=== PATIENT | female | born 1980 | race Caucasian/White ===

== ENCOUNTER 2016-11-10 05:29 | Day surgery (SDC) | payer OTHER ==
[2016-11-09 15:11] VITALS: BMI 33.1
[2016-11-10] VITALS (17 sets, daily range): BP systolic 112–143; BP diastolic 58–82; PULSE 54–84; RESP 13–26; Ht 162.6 cm; Wt 87.5 kg
[~2016-11-10] VITALS: Ht 162.6 cm; Wt 87.5 kg
[~2016-11-10 05:29] MED LIST: BACTDS PO; BUPIVACAINE 0.5% (SDV) 30 ML INJ INJ ONE; CEPH-443 PO; FAMO-18 PO; IBUP-1542 PO; ONDA4TAB8 PO; POLYMYXIN/BACITRACIN 1L IRRIG IRR ONE
[2016-11-10] MEDS ORDERED: CEFAZOLIN 2 GM/50 ML (PMX) 50 ML IVPB ONE (06:00)
[2016-11-10] MEDS ORDERED: BUPIVACAINE 0.5% (SDV) 30 ML INJ ONE (06:58)
[2016-11-10] MEDS ORDERED: CEFAZOLIN 1 GM INJ ONE (07:00)
--- NOTE | 2016-11-10 07:58 | HPN ---
Date/Time of Note Date/Time of Note DATE: 11/10/16 TIME: 07:57 Interval H&P Admission Note Pt. seen H&P reviewed: No system changes ROBERTH KING DPM Nov 10, 2016 07:58
[2016-11-10] MEDS ORDERED: MIDAZOLAM 1 MG/ML 2 ML INJ ONE (08:02)
[2016-11-10] MEDS ORDERED: ROPIVACAINE 0.5 % 30 ML VIAL ONE (08:06)
[2016-11-10] MEDS ORDERED: FENTAnyl 50 MCG/ML VIAL ONE (08:08)
[2016-11-10] MEDS ORDERED: GLYCOPYRROLATE 1 MG INJ ONE (08:37)
[2016-11-10] MEDS ORDERED: NEOSTIGMINE 3 MG/3 ML SYRINGE ONE (08:37)
[2016-11-10] MEDS ORDERED: LIDOCAINE 2% (SDV) 5 ML INJ ONE (08:37)
[2016-11-10] MEDS ORDERED: PROPOFOL 20 ML ONE ×2 (08:37→09:03)
[2016-11-10] MEDS ORDERED: ROCURONIUM 50 MG INJ ONE (08:37)
[2016-11-10] MEDS ORDERED: SUCCINYLCHOLINE CHLORIDE 100 MG/5 ML SYG IV ONE (08:37)
[2016-11-10] MEDS ORDERED: METOCLOPRAMIDE 10 MG INJ IV PRN (09:00)
[2016-11-10] MEDS ORDERED: DIPHENHYDRAMINE 50 MG INJ IV PRN (09:00)
[2016-11-10] MEDS ORDERED: HYDROmorphONE (0.2 MG/ML) 10ML SYG IV PRN ×2 (09:00)
[2016-11-10] MEDS ORDERED: FENTAnyl 50 MCG/ML VIAL IV PRN ×2 (09:00)
[2016-11-10] MEDS ORDERED: MIDAZOLAM 1 MG/ML 2 ML INJ IV PRN (09:00)
[2016-11-10] MEDS ORDERED: ONDANSETRON 4 MG INJ IV PRN (09:00)
[2016-11-10] MEDS ORDERED: MEPERIDINE 25 MG INJ IV PRN (09:00)
[2016-11-10] MEDS ORDERED: ONDANSETRON 4 MG INJ ONE (09:29)
[2016-11-10] MEDS: HYDROmorphONE (0.2 MG/ML) 10ML SYG IV PRN ×5 (09:41→10:39)
[2016-11-10] MEDS ORDERED: HYDROCODONE/APAP (5/325) TAB PO ONE (11:30)
--- NOTE | 2016-11-10 13:48 | RADRPT ---
PROCEDURE: XR Right Foot. CLINICAL INDICATION: Right foot pain. TECHNIQUE: Three views. Frontal, lateral, and oblique. COMPARISON: None. FINDINGS: There has been recent surgery with gas in the soft tissues of the first toe. There has been osteoto my of the first metatarsal distally with a single cannulated screw at this site. There are pins in the fourth and fifth toes. There is no acute fracture or dislocation. The soft tissues are otherwise normal. The articular surfaces are otherwise intact. There is no lytic or blastic lesion. IMPRESSION: 1. Satisfactory postoperative appearance of the right foot. RPTAT: QQ .Jonathan Hernandez MD, MD Date Time Electronically viewed and signed by .Jonathan Hernandez MD, MD on 11/10/2016 13:48 .R/
[2016-11-11] MEDS ORDERED: ONDA4TAB14 PO (17:15)
[2016-11-11] MEDS ORDERED: HYDR2TAB15 PO (17:15)
== END 2016-11-10 13:05 | disposition home or self-care (01) ==
LOC: SDS 05:29
PROVIDERS: ATTEND Podiatrist Foot & Ankle Surgery
DX: M21.611 Bunion of right foot (principal); M20.41 Other hammer toe(s) (acquired), right foot
CPT/HCPCS: 28285; 28298; 73630; 88304; 88311; C1713; J0330; J0690; J1170; J1200; J2175; J2250; J2405; J2710; J2795; J3010; Z7512; Z7610

== ENCOUNTER 2016-11-11 16:13 | Emergency (ER) | payer OTHER ==
[~2016-11-11] VITALS: Wt 86.0 kg
[~2016-11-11 16:13] MED LIST changes: -BUPIVACAINE 0.5% (SDV) 30 ML INJ INJ ONE; -POLYMYXIN/BACITRACIN 1L IRRIG IRR ONE
[2016-11-11] MEDS ORDERED: KETOROLAC 30 MG INJ IM STA (17:12)
[2016-11-11] MEDS ORDERED: ONDANSETRON (ODT) 4 MG TAB ODT STA (17:12)
[2016-11-11] MEDS ORDERED: ONDA4TAB14 PO (17:15)
[2016-11-11] MEDS ORDERED: HYDR2TAB15 PO (17:15)
--- NOTE | 2016-11-11 18:57 | ERD ---
ER Documentation Chief Complaint Date/Time DATE: 11/11/16 TIME: 18:55 Chief Complaint POST OP PAIN FROM PROCEDURE DONE TO R FOOT YESTERDAY HPI Patient is a 36-year-old female with no medical problems who presents with right fifth toe pain after surgery. The patient had a bunion and hammertoe surgery done yesterday by Dr. Gilbert from podiatry. She was given Falls but was having nausea and vomiting and therefore could not keep it down was having pain. Her last dose of Falls was at 11 AM. She was also having neck stiffness. She has no fevers. ROS All systems reviewed and are negative except as per history of present illness. Medications Home Meds Active Scripts Ondansetron (Ondansetron Odt) 4 Mg Tab.rapdis, 4 MG PO Q6H Y for NAUSEA AND/OR VOMITING, #30 TAB Prov:LU AZEVEDO MD 11/11/16 Hydromorphone Hcl* (Dilaudid*) 2 Mg Tablet, 2 MG PO Q6H Y for PAIN, #12 TAB Prov:LU AZEVEDO MD 11/11/16 Sulfamethoxazole-Trimethoprim* (Bactrim* DS) 800-160 Mg Tab, 1 TAB PO BID for 5 Days, TAB Prov:SAAD RIVERA CHIEF SOLUTION ARCHITECT 06/25/16 Cephalexin* (Keflex*) 500 Mg Capsule, 500 MG PO QID for 5 Days, CAP Prov:SAAD RIVERA NP 06/25/16 Ibuprofen* (Motrin*) 600 Mg Tab, 600 MG PO Q6H Y for PAIN AND OR ELEVATED TEMP, #30 TAB Prov:SAAD RIVERA NP 06/25/16 Ondansetron Hcl* (Zofran*) 4 Mg Tablet, 4 MG PO Q6H for NAUSEA AND/OR VOMITING, #30 TAB Prov:MANAGUELOD,ISAIAH P CHIEF SOLUTION ARCHITECT 06/19/16 Famotidine* (Pepcid*) 20 Mg Tablet, 20 MG PO BID for 10 Days, #20 TAB Prov:MANAGUELOD,ISAIAH P CHIEF SOLUTION ARCHITECT 06/19/16 Allergies Allergies: Coded Allergies: iodine (Unverified Allergy, Unknown, 06/19/16) latex (Verified Allergy, Unknown, 06/10/16) povidone-iodine (Unverified Allergy, Unknown, 06/10/16) soap (Unverified Allergy, Unknown, 06/10/16) Uncoded Allergies: SHELLFISH (Allergy, Unknown, 02/19/16) PMhx/Soc History of Surgery: Yes (left foot surgery, gall stone, ) Anesthesia Reaction: Yes (N/V) Hx Neurological Disorder: No Hx Respiratory Disorders: No Hx Cardiac Disorders: No Hx Psychiatric Problems: No Hx Miscellaneous Medical Probl: No Hx Alcohol Use: No Hx Substance Use: No Hx Tobacco Use: No FmHx Family History: No diabetes Physical Exam Vitals Vital Signs Date Time Temp Pulse Resp B/P Pulse Ox O2 Delivery O2 Flow Rate FiO2 11/11/16 16:16 98.3 71 18 120/78 99 Physical Exam Const: Mild distress secondary to pain Head: Atraumatic Eyes: Normal Conjunctiva ENT: Normal External Ears, Nose and Mouth. Neck: Full range of motion..~ No meningismus. Resp: Clear to auscultation bilaterally Cardio: Regular rate and rhythm, no murmurs Abd: Soft, non tender, non distended. Normal bowel sounds Skin: Recent surgery to the right fifth foot Back: No midline or flank tenderness Ext: No cyanosis, or edema Neur: Awake and alert Psych: Normal Mood and Affect Results 24 hrs Current Medications Medications (Trade) Dose Ordered Sig/Morales Route PRN Reason Start Time Stop Time Status Last Admin Dose Admin Ketorolac Tromethamine (Toradol) 30 mg ONCE STAT IM 11/11/16 17:12 11/11/16 17:13 DC 11/11/16 17:27 Ondansetron HCl (Zofran Odt) 4 mg ONCE STAT ODT 11/11/16 17:12 11/11/16 17:13 DC 11/11/16 17:27 Procedures/MDM Patient is a 36-year-old female presents with postoperative pain. I believe the patient will benefit from having a shot of Toradol in the emergency department. I believe changing her from Falls to Dilaudid pills would be appropriate as well. I will also give her a prescription for Zofran for the nausea and vomiting which is likely caused by the opioids. The patient will need to follow-up with Dr. Gilbert for any further pain medicines. She can return for any worsening symptoms. I see no signs of infection at this time. I believe outpatient management is appropriate. Departure Diagnosis: Primary Impression: Postoperative pain of extremity Condition: Fair Patient Instructions: Post Op Wound Check, Pain Referrals: ROBERTH GILBERT DPM Additional Instructions: SPECIALIST: YOU HAVE A MEDICAL CONDITION WHICH REQUIRES YOU TO SEE A SPECIALIST WITHIN THE NEXT 1-2 DAYS. PLEASE FOLLOW UP WITH YOUR PRIMARY PHYSICIAN FOR REFFERAL.IF YOU DO NOT HAVE A PRIMARY CARE PHYSICIAN AND/OR YOU CAN NOT AFFORD TO SEE A PHYSICIAN THE FOLLOWING RESOURCES HAVE BEEN SUPPLIED TO YOU. IT IS YOUR RESPONSIBILITY TO BE SEEN BY THE SPECIALIST LU AZEVEDO MD Nov 11, 2016 18:57
[2016-11-11 19:04] VITALS: BP 127/76; PULSE 61; RESP 20
== END 2016-11-11 19:00 | disposition home or self-care (01) ==
LOC: FTE 16:13
DX: G89.18 Other acute postprocedural pain (principal); M79.674 Pain in right toe(s); R11.2 Nausea with vomiting, unspecified
CPT/HCPCS: 96372; J1885; Z7502; Z7610

== ENCOUNTER 2016-12-22 05:15 | Emergency (ER) | payer OTHER ==
[~2016-12-22] VITALS: Ht 162.6 cm; Wt 90.5 kg
[~2016-12-22 05:15] MED LIST changes: +HYDR2TAB15 PO; +ONDA4TAB14 PO
[2016-12-22 05:18] VITALS: Ht 162.6 cm; Wt 90.5 kg
[2016-12-22] MEDS ORDERED: ONDANSETRON (ODT) 4 MG TAB ODT STA (06:23)
[2016-12-22] MEDS ORDERED: morphine 10 MG INJ IM ONE (06:30)
[2016-12-22] MEDS ORDERED: ONDANSETRON 4 MG INJ IM STA (07:52)
[2016-12-22] MEDS ORDERED: AMOXICILLIN/CLAV 875 MG TAB PO ONE (10:30)
[2016-12-22] MEDS ORDERED: KETOROLAC 60 MG INJ IM STA (10:31)
--- NOTE | 2016-12-22 10:46 | RADRPT ---
PROCEDURE: CT Cervical Spine without contrast. CLINICAL INDICATION: Left neck and face pain. TECHNIQUE: Helical axial sections were obtained through the soft tissues of the neck without intra venous contrast enhancement. Sagittal and coronal reformatted images were accomplished using the da ta from the axial images. Total exam DLP is 255.99 mGy-cm. CTDIvol is 8.62 mGy. One or more of th e following dose reduction techniques were used: Automated exposure control, adjustment of the mA an d/or kV according to patient size, use of iterative reconstruction technique. COMPARISON: No prior studies are available for comparison. FINDINGS: The osseous structures are unremarkable with no fracture or malalignment. The disk height is normal . Benign-appearing bilateral cervical lymph nodes are visualized. There is no mass or fluid collection. The airway is intact. The prevertebral soft tissues are normal. IMPRESSION: 1. Unremarkable CT scan of the soft tissues of the neck. RPTAT: QQ .Jonathan Hernandez MD, MD Date Time Electronically viewed and signed by .Jonathan Hernandez MD, on 12/22/2016 10:45 .R/
[2016-12-22] MEDS ORDERED: AMOX1TAB10 PO (11:40)
[2016-12-22] MEDS ORDERED: HYDR-906 PO (11:41)
[2016-12-22] MEDS ORDERED: NAPR-260 PO (11:41)
--- NOTE | 2016-12-22 11:43 | ERD ---
ER Documentation Chief Complaint Date/Time DATE: 12/22/16 TIME: 11:43 Chief Complaint left ear pain HPI This 36-year-old female presents to the emergency with left ear pain that is also traveling down the side of her face and the top portion of her neck on that side. The pain began yesterday and the patient had nausea that began today. She had an episode of vomiting as well. States that 2 weeks ago she had a dental abscess drained. Currently she has no dental pain or symptoms inside of her mouth. She denies fever and chills. ROS All systems reviewed and are negative except as per history of present illness. Medications Home Meds Active Scripts Ondansetron (Zofran Odt) 4 Mg Tab.rapdis, 4 MG PO Q6, #14 Prov:ASYA DOYLE DO 12/22/16 Naproxen* (Naprosyn*) 500 Mg Tablet, 500 MG PO BID Y for PAIN AND/OR INFLAMMATION, #30 TAB Prov:ASYA DOYEL DO 12/22/16 Hydrocodone/Acetaminophen ([place] 5-325 Tablet) 1 Each Tablet, 1 EACH PO Q6, #10 TAB Prov:ASYA DOYLE DO 12/22/16 Amoxicillin/Potassium Clav (Amox-Clav 875-125 mg Tablet) 875-125 mg Tab, 1 TAB PO BID, #18 TAB Prov:ASYA DOYLE DO 12/22/16 Ondansetron (Ondansetron Odt) 4 Mg Tab.rapdis, 4 MG PO Q6H Y for NAUSEA AND/OR VOMITING, #30 TAB Prov:LU AZEVEDO MD 11/11/16 Hydromorphone Hcl* (Dilaudid*) 2 Mg Tablet, 2 MG PO Q6H Y for PAIN, #12 TAB Prov:LU AZEVEDO MD 11/11/16 Sulfamethoxazole-Trimethoprim* (Bactrim* DS) 800-160 Mg Tab, 1 TAB PO BID for 5 Days, TAB Prov:SAAD RIVERA NP 06/25/16 Cephalexin* (Keflex*) 500 Mg Capsule, 500 MG PO QID for 5 Days, CAP Prov:SAAD RIVERA NP 06/25/16 Ibuprofen* (Motrin*) 600 Mg Tab, 600 MG PO Q6H Y for PAIN AND OR ELEVATED TEMP, #30 TAB Prov:SAAD RIVERA WALL STEAMER 06/25/16 Ondansetron Hcl* (Zofran*) 4 Mg Tablet, 4 MG PO Q6H for NAUSEA AND/OR VOMITING, #30 TAB Prov:MANAGUELOD,ISAIAH P WALL STEAMER 06/19/16 Famotidine* (Pepcid*) 20 Mg Tablet, 20 MG PO BID for 10 Days, #20 TAB Prov:MANAGUELOD,ISAIAH P WALL STEAMER 06/19/16 Allergies Allergies: Coded Allergies: iodine (Unverified Allergy, Unknown, 06/19/16) latex (Verified Allergy, Unknown, 06/10/16) povidone-iodine (Unverified Allergy, Unknown, 06/10/16) soap (Unverified Allergy, Unknown, 06/10/16) Uncoded Allergies: SHELLFISH (Allergy, Unknown, 02/19/16) PMhx/Soc Medical and Surgical Hx: pt denies Medical Hx History of Surgery: Yes (left foot surgery, gall stone, ) Anesthesia Reaction: Yes (N/V) Hx Neurological Disorder: No Hx Respiratory Disorders: No Hx Cardiac Disorders: No Hx Psychiatric Problems: No Hx Miscellaneous Medical Probl: No Hx Alcohol Use: No Hx Substance Use: No Hx Tobacco Use: No Smoking Status: Never smoker Physical Exam Vitals Vital Signs Date Time Temp Pulse Resp B/P Pulse Ox O2 Delivery O2 Flow Rate FiO2 12/22/16 05:18 98.7 78 20 132/85 98 Physical Exam Const: [] No acute distress Eyes: Normal Conjunctiva ENT: Normal External Ears, Nose and Mouth. Right tympanic murmur within normal limits, left tympanic membrane with erythema along upper margin of tympanic membrane with some dullness. Neck: Full range of motion..~ No meningismus. No adenopathy Resp: Clear to auscultation bilaterally Cardio: Regular rate and rhythm, no murmurs Neur: Awake and alert and oriented 3, normal gait, cranial nerves II through XII intact, no cerebellar deficits no focal deficits Results 24 hrs Current Medications Medications (Trade) Dose Ordered Sig/Morales Route PRN Reason Start Time Stop Time Status Last Admin Dose Admin Morphine Sulfate (morphine) 4 mg ONCE ONCE IM 12/22/16 06:30 12/22/16 06:31 DC 12/22/16 06:32 Ondansetron HCl (Zofran Odt) 4 mg ONCE STAT ODT 12/22/16 06:23 12/22/16 06:24 DC 12/22/16 06:32 Ondansetron HCl (Zofran Inj) 4 mg ONCE STAT IM 12/22/16 07:52 12/22/16 07:53 DC 12/22/16 08:03 Amoxicillin/ Clavulanate Potassium (Augmentin) 875 mg ONCE ONCE PO 12/22/16 10:30 12/22/16 10:31 DC 12/22/16 10:39 Ketorolac Tromethamine (Toradol) 60 mg ONCE STAT IM 12/22/16 10:31 12/22/16 10:32 DC 12/22/16 10:39 Procedures/MDM Left-sided ear and facial pain with mild otitis media 2 weeks after dental abscess drainage. Thought was for possible abscess or increasing infection. CT soft tissue neck was negative for any inflammation or fluid collection in the face neck or area around the ear. Also no mastoiditis. Patient's vital signs were completely stable. She did have nausea she came in. She was given Zofran both IM and ODT and given a morphine shot 4 mg. This took away her pain completely. Because of prolonged time getting the CT read patient's pain returned somewhat and she was given Toradol IM injection which took away the pain completely. Going to discharge her with Augmentin for the potential of infection and her eustachian tube as well as her ear causing her pain and nausea. Also given instructions to call her doctor today to get a referral for an ENT doctor. Return precautions to the ER also given. CT soft tissue neck interpretation: Normal soft tissue neck, no fluid collection , no inflammation of normal spaces. Departure Diagnosis: Primary Impression: Left otitis media Additional Impressions: Vomiting Facial pain Condition: Stable Patient Instructions: Otitis Media, Abx Tx (Adult) Additional Instructions: Call your primary care doctor TOMORROW for an appointment during the next 1-2 days. Obtain a referral for an ENT DOCTOR. See the doctor sooner or return here if your condition worsens before your appointment time. ASYA DOYLE DO December 22, 2016 11:43
[2016-12-22] MEDS ORDERED: ONDA4TAB11 PO (12:09)
[2016-12-22] MEDS ORDERED: CYAN50TA PO (20:13)
== END 2016-12-22 12:13 | disposition home or self-care (01) ==
LOC: FTE 05:15
DX: H66.92 Otitis media, unspecified, left ear (principal); R11.10 Vomiting, unspecified; R51 Headache; Z91.040 Latex allergy status
CPT/HCPCS: 70490; 96372; J1885; J2270; J2405; Z7502; Z7610

== ENCOUNTER 2016-12-22 13:31 | Inpatient (IN) | payer OTHER ==
[~2016-12-22] VITALS: Ht 162.6 cm; Wt 89.5 kg
[~2016-12-22 13:31] MED LIST changes: +AMOX1TAB10 PO; +HYDR-906 PO; +NAPR-260 PO; +ONDA4TAB11 PO
[2016-12-22] MEDS ORDERED: morphine 4 MG/ML VIAL IV STA (14:51)
[2016-12-22] MEDS ORDERED: ONDANSETRON 4 MG INJ IV STA (14:51)
[2016-12-22 15:24] LABS: ADD UMIC YES; URINE BILIRUBIN (Dip) 2+ (NEGATIVE); URINE BLOOD (Dip) NEGATIVE (NEGATIVE); URINE COLOR AMBER (YELLOW); URINE GLUCOSE (Dip) NEGATIVE (NEGATIVE); URINE KETONES (Dip) TRACE (NEGATIVE); URINE LEUKOCYTE ESTERASE (Dip) NEGATIVE (NEGATIVE); URINE NITRITE (Dip) POSITIVE (NEGATIVE); URINE TOTAL PROTEIN (Dip) 2+ (NEGATIVE); URINE UROBILINOGEN (Dip) 1.0 E.U./dL (0.1-1.0)
--- NOTE | 2016-12-22 15:35 | RADRPT ---
PROCEDURE: US Abdomen (right upper quadrant). CLINICAL INDICATION: Right upper quadrant abdomen pain. History of cholecystectomy. TECHNIQUE: Multiple real-time longitudinal and transverse images of the right upper quadrant of th e abdomen were acquired utilizing a curved array transducer. Images were reviewed on a high-resoluti on PACS workstation. COMPARISON: CT scan of the abdomen and pelvis dated 10/28/2014. FINDINGS: The liver is normal in size and diffusely increased in echogenicity. There is no focal hepatic lesion. The gallbladder is surgically absent. The bile ducts are normal with the common bile duct measuring 4.4 mm in diameter. The visualized portions of the pancreas are unremarkable with obscuration of the tail of the pancrea s. No free fluid is present. The right kidney measures 11.4 cm. There is normal echogenicity of the right kidney. There is no perinephric fluid collection. No hydronephrosis, mass, or calculus is seen. IMPRESSION: 1. Fatty metamorphosis of the liver. 2. Status post cholecystectomy. 3. Otherwise normal right upper quadrant abdomen ultrasound. RPTAT: QQ .Jonathan Hernandez MD, MD Date Time Electronically viewed and signed by .Jonathan Hernandez MD, on 12/22/2016 15:35 .R/
[2016-12-22 16:00] LABS: ADD SCAN DIFF NO
[2016-12-22 16:01] LABS: BASOPHILS % 0.1 % (0.0-2.0); EOSINOPHILS # 0.1 10^3/ul (0.0-0.5); EOSINOPHILS % 0.5 % (0.0-7.0); HEMATOCRIT 38.3 % (37.0-47.0); HEMOGLOBIN 12.4 g/dl (12.0-16.0); LYMPHOCYTES # 1.5 10^3/ul (0.8-2.9); LYMPHOCYTES % 13.9 % (15.0-51.0); MEAN CORPUSCULAR HEMOGLOBIN 26.2 pg (29.0-33.0); MEAN CORPUSCULAR HGB CONC 32.4 g/dl (32.0-37.0); MEAN PLATELET VOLUME 10.2 fl (7.4-10.4); MONOCYTE # 0.3 10^3/ul (0.3-0.9); MONOCYTES % 3.1 % (0.0-11.0); NEUTROPHIL # 8.9 10^3/ul (1.6-7.5); NEUTROPHILS % 81.9 % (39.0-77.0); PLATELET COUNT 254 10^3/UL (140-415); RED BLOOD COUNT 4.73 10^6/ul (4.20-5.40); RED CELL DISTRIBUTION WIDTH 13.4 % (11.5-14.5); WHITE BLOOD COUNT 10.8 10^3/ul (4.8-10.8)
[2016-12-22 16:18] LABS: ALBUMIN 4.4 g/dl (3.3-4.9)
[2016-12-22 16:19] LABS: POTASSIUM 3.5 mmol/L (3.5-5.1)
[2016-12-22 16:21] LABS: BILIRUBIN,INDIRECT 0.6 mg/dl (0-1.1); BILIRUBIN,TOTAL 0.6 mg/dl (0.2-1.3); CREATININE 0.66 mg/dl (0.44-1.00)
[2016-12-22 16:22] LABS: ALBUMIN/GLOBULIN RATIO 1.25; CALCIUM 9.4 mg/dl (8.4-10.2); TOTAL PROTEIN 7.9 g/dl (6.1-8.1)
[2016-12-22] MEDS ORDERED: METOCLOPRAMIDE 10 MG INJ IV STA (16:24)
[2016-12-22 16:28] LABS: ICTOTEST NEGATIVE (NEGATIVE)
[2016-12-22 16:29] LABS: SQUAMOUS EPITHELIAL CELL,UR FEW; URINE RBCS NONE SEEN /HPF (0)
[2016-12-22 16:30] LABS: BACTERIA,URINE MODERATE; MUCUS,URINE MODERATE
[2016-12-22] MEDS ORDERED: SOD CHLORIDE 0.9% 1,000 ML IV STA (16:31)
--- NOTE | 2016-12-22 16:57 | ERA ---
ER Documentation Chief Complaint Date/Time DATE: 12/22/16 TIME: 16:57 Chief Complaint ABDOMINAL PAIN WITH N/V AFTER BEING DISCHARGED 20MIN AGO HPI This is a 36-year-old female with history of cholecystectomy presenting to the emergency department complaining of right upper and lower quadrant abdominal pain, nausea, vomiting since she has been discharged from this hospital 20 minutes prior to being seen. Patient initially was complaining of left ear pain that started yesterday with nausea and one episode of vomiting, patient received morphine, Zofran, Augmentin. Patient states that she was fine until she went to the restroom and try to have a bowel movement and she had this severe 7 out of 10 right and left lower quadrant pain that radiates to her back associated with nausea and vomiting. Patient denies any fevers or diarrhea. Patient denies any alcohol use or drug use. ROS All systems reviewed and are negative except as per history of present illness. Medications Home Meds Active Scripts Ondansetron (Zofran Odt) 4 Mg Tab.rapdis, 4 MG PO Q6, #14 Prov:ASYA DOYLE DO 12/22/16 Naproxen* (Naprosyn*) 500 Mg Tablet, 500 MG PO BID Y for PAIN AND/OR INFLAMMATION, #30 TAB Prov:ASYA DOYLE DO 12/22/16 Hydrocodone/Acetaminophen ([place] 5-325 Tablet) 1 Each Tablet, 1 EACH PO Q6, #10 TAB Prov:ASYA DOYLE DO 12/22/16 Amoxicillin/Potassium Clav (Amox-Clav 875-125 mg Tablet) 875-125 mg Tab, 1 TAB PO BID, #18 TAB Prov:ASYA DOYLE DO 12/22/16 Ondansetron (Ondansetron Odt) 4 Mg Tab.rapdis, 4 MG PO Q6H Y for NAUSEA AND/OR VOMITING, #30 TAB Prov:LU AZEVEDO MD 11/11/16 Hydromorphone Hcl* (Dilaudid*) 2 Mg Tablet, 2 MG PO Q6H Y for PAIN, #12 TAB Prov:LU AZEVEDO MD 11/11/16 Sulfamethoxazole-Trimethoprim* (Bactrim* DS) 800-160 Mg Tab, 1 TAB PO BID for 5 Days, TAB Prov:SAAD RIVERA NP 06/25/16 Cephalexin* (Keflex*) 500 Mg Capsule, 500 MG PO QID for 5 Days, CAP Prov:SAAD RIVERA X. PURCHASING MANAGER/SALES 06/25/16 Ibuprofen* (Motrin*) 600 Mg Tab, 600 MG PO Q6H Y for PAIN AND OR ELEVATED TEMP, #30 TAB Prov:SAAD RIVERA X. PURCHASING MANAGER/SALES 06/25/16 Ondansetron Hcl* (Zofran*) 4 Mg Tablet, 4 MG PO Q6H for NAUSEA AND/OR VOMITING, #30 TAB Prov:MANAGUELOD,ISAIAH P PURCHASING MANAGER/SALES 06/19/16 Famotidine* (Pepcid*) 20 Mg Tablet, 20 MG PO BID for 10 Days, #20 TAB Prov:MANAGUELOD,ISAIAH P PURCHASING MANAGER/SALES 06/19/16 Allergies Allergies: Coded Allergies: iodine (Unverified Allergy, Unknown, 12/22/16) latex (Verified Allergy, Unknown, 12/22/16) povidone-iodine (Unverified Allergy, Unknown, 12/22/16) soap (Unverified Allergy, Unknown, 12/22/16) Uncoded Allergies: SHELLFISH (Allergy, Unknown, 02/19/16) PMhx/Soc History of Surgery: Yes (left foot surgery, gall stone, ) Anesthesia Reaction: Yes (N/V) Hx Neurological Disorder: No Hx Respiratory Disorders: No Hx Cardiac Disorders: No Hx Psychiatric Problems: No Hx Miscellaneous Medical Probl: No Hx Alcohol Use: No Hx Substance Use: No Hx Tobacco Use: No Smoking Status: Never smoker Physical Exam Vitals Vital Signs Date Time Temp Pulse Resp B/P Pulse Ox O2 Delivery O2 Flow Rate FiO2 12/22/16 13:40 97.6 88 18 113/63 98 Physical Exam GENERAL: well-developed/well-nourished, in no apparent distress, non-toxic appearing HENT: NC/AT, moist mucous membranes EYES: Conjunctiva normal NECK: Supple, no lymphadenopathy PULM: CTA bilaterally, no rales, rhonchi, or wheezing heard CV: Normal S1S2, RRR, good capillary refill GI: Soft, non-distended, tender to palpation right upper quadrant epigastric pain Normal bowel sounds, no masses or organomegaly felt on exam No gross peritonitis, no bruits Negative Rovsing, negative Mcgee, negative McBurney's point, Negative CVAT BACK: No masses EXT: No clubbing, cyanosis, or edema NEURO: Alert and Orientated SKIN: Intact, normal turgor PSYCH: Normal mood and mentation Result Diagram: 12/22/16 1535 12/22/16 1535 Results 24 hrs Laboratory Tests Test 12/22/16 15:00 12/22/16 15:35 Urine Color BRANT Urine Clarity SLIGHTLY CLOUDY Urine pH 5.0 Urine Specific [place] >=1.030 Urine Ketones TRACE Urine Nitrite POSITIVE Urine Bilirubin 2+ Urine Ictotest NEGATIVE Urine Urobilinogen 1.0 E.U./dL Urine Leukocyte Esterase NEGATIVE Urine Microscopic RBC NONE SEEN/HPF Urine Microscopic WBC NONE SEEN/HPF Urine Squamous Epithelial Cells FEW Urine Calcium Oxalate Crystals MODERATE Urine Bacteria MODERATE Urine Mucus MODERATE Urine Hemoglobin NEGATIVE Urine Glucose NEGATIVE% Urine Total Protein 2+ Urine Opiates Screen Pending Urine Barbiturates Pending Urine Amphetamines Screen Negative Urine Benzodiazepines Screen Pending Urine Cocaine Screen Pending Urine Cannabinoids Pending White Blood Count 10.810^3/ul Red Blood Count 4.7310^6/ul Hemoglobin 12.4g/dl Hematocrit 38.3% Mean Corpuscular Volume 81.0fl Mean Corpuscular Hemoglobin 26.2pg Mean Corpuscular Hemoglobin Concent 32.4g/dl Red Cell Distribution Width 13.4% Platelet Count 82205^3/UL Mean Platelet Volume 10.2fl Neutrophils % 81.9% Lymphocytes % 13.9% Monocytes % 3.1% Eosinophils % 0.5% Basophils % 0.1% Nucleated Red Blood Cells % 0.0/100WBC Neutrophils # 8.910^3/ul Lymphocytes # 1.510^3/ul Monocytes # 0.310^3/ul Eosinophils # 0.110^3/ul Basophils # 0.010^3/ul Nucleated Red Blood Cells # 0.010^3/ul Sodium Level 140mmol/L Potassium Level 3.5mmol/L Chloride Level 99mmol/L Carbon Dioxide Level 28mmol/L Anion Gap 17 Blood Urea Nitrogen 12mg/dl Creatinine 0.66mg/dl Glucose Level 104mg/dl Calcium Level 9.4mg/dl Total Bilirubin 0.6mg/dl Direct Bilirubin 0.00mg/dl Indirect Bilirubin 0.6mg/dl Aspartate Amino Transf (AST/SGOT) 279IU/L Alanine Aminotransferase (ALT/SGPT) 150IU/L Alkaline Phosphatase 103IU/L Total Protein 7.9g/dl Albumin 4.4g/dl Globulin 3.50g/dl Albumin/Globulin Ratio 1.25 Lipase 1240U/L Ethyl Alcohol Level < 10.0mg/dl Current Medications Medications (Trade) Dose Ordered Sig/Morales Route PRN Reason Start Time Stop Time Status Last Admin Dose Admin Morphine Sulfate (morphine) 4 mg ONCE STAT IV 12/22/16 14:51 12/22/16 14:53 DC 12/22/16 15:47 Ondansetron HCl (Zofran Inj) 4 mg ONCE STAT IV 12/22/16 14:51 12/22/16 14:53 DC 12/22/16 15:43 Metoclopramide HCl 10 mg 10 mg ONCE STAT IV 12/22/16 16:24 12/22/16 16:25 DC 12/22/16 16:33 Sodium Chloride 1,000 ml @ 2,000 mls/hr Q30M STAT IV 12/22/16 16:31 12/22/16 17:00 DC 12/22/16 16:35 Sodium Chloride (NS) 1,000 ml @ 80 mls/hr [id number] IV 12/22/16 17:57 12/23/16 06:26 Ondansetron HCl (Zofran Inj) 4 mg BRIDGE ORDER PRN IV NAUSEA AND/OR VOMITING 12/22/16 18:00 12/23/16 17:59 Acetaminophen (Tylenol Tab) 650 mg ER BRIDGE PRN PO MILD PAIN/FEVER 12/22/16 18:00 12/23/16 17:59 Procedures/MDM This is a 36-year-old female with history of cholecystectomy presenting to the emergency department complaining of right-sided abdominal pain that radiates to her back,nausea, vomiting since she has been discharged from this hospital 20 minutes prior to being seen. Patient was found to have acute pancreatitis, etiology unknown and will be admitted as an inpatient for further evaluation and management. Patient initially was complaining of left ear pain that started yesterday with nausea and one episode of vomiting, patient received morphine, Zofran, Augmentin. Patient states that she was fine until she went to the restroom and try to have a bowel movement and she had this severe 7 out of 10 right and left lower quadrant pain that radiates to her back associated with nausea and vomiting. Patient has stable vital signs, she is afebrile. IV access was established. Patient was given 2 L of fluids, Zofran, Morphine, Reglan and her symptoms have stabilized in the ED. Lab work was drawn, patient had no evidence of leukocytosis. CMP showed elevated transaminases, patient had an elevated lipase around 1200. Gallbladder ultrasound was done, radiologist stated: 1. Fatty metamorphosis of the liver. 2. Status post cholecystectomy. 3. Otherwise normal right upper quadrant abdomen ultrasound. CT abd and pelvis without contrast: 1. Small to moderate hiatal hernia. 2. 1.7 cm cyst in the left adnexa consistent with an ovarian cyst. 3. Small amount of free fluid in the cul-de-sac. No abdominal abscess or free air. 4. Unremarkable appendix. 5. Status post cholecystectomy without biliary ductal dilation. 6. No evidence of calcified urinary calculi or obstructive uropathy. I have consulted my supervising physician who consulted the hospitalist and accepted admission to med/surg. Patient is stable for transfer. Patient's care until admission will further be done by Departure Diagnosis: Primary Impression: Pancreatitis Condition: JANETTE Casillas PA-C December 22, 2016 16:57
--- NOTE | 2016-12-22 17:14 | RADRPT ---
PROCEDURE: CT Abdomen and pelvis without contrast. CLINICAL INDICATION: Epigastric pain TECHNIQUE: CT scan of the abdomen and pelvis with contrast was performed on a multidetector high-r esolution CT scan. . Coronal and sagittal reformatted images were obtained from the axial source i mages. Standard CT scan of the abdomen pelvis without contrast protocols were performed. The total exam CTDI equals 20.1 mGy and the total exam DLP equals 1162.06 mGy-cm. One or more of the following dose reduction techniques were used: - Automated exposure control. - Adjustment of the mA and/or kV according to patient size. Use of iterative reconstruction technique. COMPARISON: Abdominal ultrasound 12/22/2016 FINDINGS: Status post previous cholecystectomy without evidence of biliary ductal dilation. The appendix is unremarkable. The small bowel large bowel are unremarkable. There is a small to mo derate hiatal hernia. The stomach is otherwise unremarkable.. The kidneys are normal in size without evidence of calcified renal calculi, hydronephrosis or ventra l masses bilaterally. The urinary bladder is partially contracted but otherwise unremarkable. The uterus is retroverted but otherwise unremarkable. There is a 1.7 cm cystic mass in the left adn exa consistent with a left ovarian cyst. No other adnexal masses demonstrated. The small amount of fluid in the cul-de-sac. No other abdominal free fluid. Negative for intra-abdominal abscess or fr ee air. The lung bases are unremarkable. There is minimal degenerative changes lower thoracic and lumbar sp ine. No acute osseous findings are osteoblastic/osteolytic lesions. The aorta is unremarkable. IMPRESSION: 1. Small to moderate hiatal hernia. 2. 1.7 cm cyst in the left adnexa consistent with an ovarian cyst. 3. Small amount of free fluid in the cul-de-sac. No abdominal abscess or free air. 4. Unremarkable appendix. 5. Status post cholecystectomy without biliary ductal dilation. 6. No evidence of calcified urinary calculi or obstructive uropathy. RPTAT:AAJJ Physician Charley Date Time Electronically viewed and signed by Physician Charley on 12/22/2016 17:14 BM/
[2016-12-22] MEDS ORDERED: SOD CHLORIDE 0.9% 1,000 ML IV SCH (17:57)
[2016-12-22] MEDS ORDERED: ACETAMINOPHEN 325 MG TAB PO PRN (18:00)
[2016-12-22] MEDS ORDERED: ONDANSETRON 4 MG INJ IV PRN (18:00)
[2016-12-22] MEDS: SOD CHLORIDE 0.9% 1,000 ML IV SCH (19:00)
[2016-12-22 19:21] LABS: BENZODIAZEPINES NEGATIVE (NEGATIVE); CANNABINOIDS NEGATIVE (NEGATIVE)
[2016-12-22 19:22] LABS: BARBITURATES NEGATIVE (NEGATIVE)
[2016-12-22 20:09] LABS: COCAINE POSITIVE (NEGATIVE); OPIATES POSITIVE (NEGATIVE)
[2016-12-22] MEDS ORDERED: CYAN50TA PO (20:13)
[2016-12-22] MEDS: morphine 2 MG INJ IV PRN (20:25)
[2016-12-22] MEDS ORDERED: LORAZEPAM 2 MG INJ IV ONE (21:30)
[2016-12-22 23:00] VITALS: BP 115/69; PULSE 86; RESP 20
--- NOTE | 2016-12-22 23:16 | RADRPT ---
PROCEDURE: MR Abdomen and MRCP. CLINICAL INDICATION: Status post cholecystectomy. Pain. TECHNIQUE: MRI abdomen with and without contrast and MRCP was performed on a high field scanner. 7.5 cc Gadavist intravenous contrast material was utilized.. 3-D coronal rotating MIP images of the biliary tree are available for review. COMPARISON: CT and ultrasound abdomen 12/22/2016 FINDINGS: MRCP: The gallbladder has been removed. There is no abnormal fluid collection in the gallbladder fossa. Cy stic duct is identified and is normal in appearance. The biliary tree is not dilated. No intrahepat ic nor extrahepatic biliary dilatation is present. Common bile duct is normal in size measuring up to 3.6 mm. There is no intraluminal calculus identified. The pancreatic duct is normal in caliber. . MRI Abdomen: The pancreas is normal in size and appearance. There is no focal pancreatic mass or peripancreatic fluid. The liver is normal in size with signal intensity compatible with fatty infiltration.. There is a 5 mm probable cyst in the right lobe liver. The spleen is normal in size and homogeneous in signal int ensity. The stomach is partially collapsed but grossly unremarkable. The adrenal glands are mariola l in appearance. Kidneys are unremarkable.. The aorta is of normal caliber. There is no retroperi toneal lymphadenopathy. The visualize bowel and mesentery are unremarkable. There is no free fluid. IMPRESSION: 1. Status post cholecystectomy. 2. No evidence for biliary obstruction. Normal caliber intrahepatic and extrahepatic biliary tree without evidence for choledocholithiasis. 3. Fatty liver. 4. Small cyst in the right lobe liver. RPTAT: HMVK .Ruben Jasso MD, Date Time Electronically viewed and signed by .Ruben Jasso MD, MD on 12/22/2016 23:16 .K/
[2016-12-22] MEDS: DOCUSATE SODIUM 100 MG CAP PO SCH (23:22)
[2016-12-22] MEDS: FAMOTIDINE 20 MG INJ IV SCH (23:22)
[2016-12-23 00:53] VITALS: Ht 162.6 cm; Wt 89.5 kg
[2016-12-23] MEDS: SOD CHLORIDE 0.9% 1,000 ML IV SCH ×4 (02:30→18:30)
--- NOTE | 2016-12-23 07:38 | HP ---
DATE OF ADMISSION: 12/22/2016 PRESENTING COMPLAINT: Abdominal pain. HISTORY OF PRESENTING COMPLAINT: Ms. Tejada is a 36-year-old female who was seen earlier in the day in our emergency room because of fullness in the left side of her ear and having ear discomfort and neck discomfort as well. At that time, she was evaluated in the ER and thought she might have s ome otitis media. She was medicated and the patient was sent home. On her way home, she developed excruciating mid epigastric abdominal pain that radiated to her back. She has never had similar melissa n before. She does have a history of gallstones and is status post cholecystectomy but she says thi s pain was different. She rated the pain as 10/10. It was associated with multiple episodes of vom iting. The patient had no fever. There was no blood in her vomit. She has had no diarrhea and she has not noted black stools. She had no chest pain, otherwise no shortness of breath. She does not have loss of appetite. REVIEW OF SYSTEMS: A 10-point review of system was done. Pertinent findings as listed in the HPI. PAST MEDICAL HISTORY: Essentially none. PAST SURGICAL HISTORY: Foot surgery, and cholecystectomy. She has had multiple bunion [place]un[place] rgeries on her foot. ALLERGIES: SHE IS ALLERGIC TO: 1. IODINE. 2. LATEX. 3. SHELLFISH. HOME MEDICATIONS: None. SOCIAL HISTORY: Denies tobacco, alcohol or illicit drug use. FAMILY HISTORY: Noncontributory. PHYSICAL EXAMINATION: VITAL SIGNS: Temperature 97.6, pulse 88, respirations 18, blood pressure 113/63, saturations 98% on room air. GENERAL: She is alert and oriented, obese female currently comfortable. HEENT: Head is normocephalic. Pupils are equal round and reactive. No jaundice. Mucous membranes are moist. Posterior pharynx clear of exudate. NECK: Supple. CHEST: Clear. CARDIOVASCULAR: S1, S2, no murmurs. ABDOMEN: Nontender, obese, soft with normoactive bowel sounds. EXTREMITIES: There is lower extremity edema. NEUROLOGIC: She has no focal deficits. SKIN: No jaundice or rash. PSYCHIATRIC: Calm, cooperative with exam, slightly anxious. LABORATORY VALUES: Her CBC was unremarkable but positive for a low MCV and MCH and a neutrophilia. On her chemistry, her AST and ALT were elevated with AST being almost double ALT at 279 and 150. H er lipase was quite elevated as well at 1240. The urine was nitrite positive with trace ketones, ba cteria and calcium oxalate crystals and urine tox screen was positive for opiates and cocaine. ASSESSMENT: 1. Acute pancreatitis with transaminitis which could be secondary to drug use as well as inflammato ry or infectious hepatitis. We will have to rule out occult gallstones. 2. Cocaine use/ . 3. Probable urinary tract infection. 4. Obesity. 5. IODINE, LATEX AND SHELLFISH allergy. PLAN: Admit her and keep her n.p.o. for now. The patient will benefit from an MRCP to rule out ___ __ gallstones. I will trend lipase levels, trend liver enzymes, hydrate with IV fluids, begin empir ic antibiotics for urinary tract infection. Will also send for a urine culture. She is counseled o n the need to quit substance abuse. We will continue to reinforce this during hospitalization. Rul e out hepatitis by screening and essentially go from there. I reviewed this with the patient and huff ve answered questions. For prophylaxis, she is on IV, H2 blockers and SCDs. Dictated By: ANALI VERMA MD, BA/MANISH Conf#: [id number] DID#: [id number]
[2016-12-23 07:52] VITALS: BP 114/69; RESP 18
[2016-12-23 07:58] LABS: ADD SCAN DIFF NO
[2016-12-23 08:10] LABS: HEMATOCRIT 33.8 % (37.0-47.0); HEMOGLOBIN 11.1 g/dl (12.0-16.0); MEAN CORPUSCULAR HEMOGLOBIN 26.2 pg (29.0-33.0); MEAN CORPUSCULAR HGB CONC 32.8 g/dl (32.0-37.0); MEAN CORPUSCULAR VOLUME 79.9 fl (82.0-101.0); MEAN PLATELET VOLUME 10.6 fl (7.4-10.4); NEUTROPHILS % 71.7 % (39.0-77.0); PLATELET COUNT 239 10^3/UL (140-415); RED BLOOD COUNT 4.23 10^6/ul (4.20-5.40); RED CELL DISTRIBUTION WIDTH 13.6 % (11.5-14.5); WHITE BLOOD COUNT 9.6 10^3/ul (4.8-10.8)
[2016-12-23 08:11] LABS: BASOPHILS % 0.2 % (0.0-2.0); EOSINOPHILS # 0.1 10^3/ul (0.0-0.5); EOSINOPHILS % 0.9 % (0.0-7.0); LYMPHOCYTES # 2.1 10^3/ul (0.8-2.9); LYMPHOCYTES % 21.9 % (15.0-51.0); MONOCYTE # 0.5 10^3/ul (0.3-0.9); MONOCYTES % 5.1 % (0.0-11.0); NEUTROPHIL # 6.9 10^3/ul (1.6-7.5)
[2016-12-23 08:25] LABS: ALANINE AMINOTRANSFERASE 369 IU/L (13-69); ALBUMIN 3.6 g/dl (3.3-4.9); ALBUMIN/GLOBULIN RATIO 1.24; ALKALINE PHOSPHATASE 122 IU/L (42-121); AMYLASE 76 U/L (11-123); ANION GAP 7 (8-16); ASPARTATE AMINO TRANSFERASE 257 IU/L (15-46); BILIRUBIN,INDIRECT 1.2 mg/dl (0-1.1); BILIRUBIN,TOTAL 1.2 mg/dl (0.2-1.3); BLOOD UREA NITROGEN 8 mg/dl (7-20); CALCIUM 8.7 mg/dl (8.4-10.2); CARBON DIOXIDE 28 mmol/L (21-31); CHLORIDE 106 mmol/L (97-110); CHOL/HDL RATIO 3.7 RATIO; CHOLESTEROL 156 mg/dl (100-200); CREATININE 0.53 mg/dl (0.44-1.00); GLUCOSE 93 mg/dl (70-220); HDL CHOLESTEROL 42 mg/dl (34-82); MAGNESIUM 1.9 mg/dl (1.7-2.5); POTASSIUM 3.8 mmol/L (3.5-5.1); SODIUM 137 mmol/L (135-144); TOTAL PROTEIN 6.5 g/dl (6.1-8.1); TRIGLYCERIDES 75 mg/dl (0-149)
[2016-12-23] MEDS: FAMOTIDINE 20 MG INJ IV SCH ×2 (08:41→21:29)
[2016-12-23] MEDS: DOCUSATE SODIUM 100 MG CAP PO SCH ×2 (08:41→21:29)
[2016-12-23] MEDS: morphine 2 MG INJ IV PRN ×2 (08:55→19:44)
--- NOTE | 2016-12-23 15:21 | PN ---
DATE: 12/23/2016 SUBJECTIVE: Patient Terrell continues to improve, states that she is feeling better today. No na usea, no vomiting. Mild abdominal discomfort. PHYSICAL EXAMINATION: VITAL SIGNS: Temperature 98, pulse 70, blood pressure 114/69, O2 saturation 98% on room air. NECK: Supple. No JVD or lymphadenopathy. CARDIAC: S1, S2, no added sounds or murmurs. CHEST: Diminished air entry bilaterally. ABDOMEN: Soft, nontender. No guarding or rebound. EXTREMITIES: No cyanosis, clubbing, edema. NEUROLOGIC: Grossly intact. No focal deficits. IMPRESSION AND PLAN: 1. Pancreatitis. 2. Status post cholecystectomy. 3. Mild dehydration. The patient will require: 1. Continued IV fluids. 2. cocaine. 3. GI consultation to hopefully discharge soon. Dictated By: RAUDEL LOZADA/MANISH Conf#: [id number] DID#: [id number]
[2016-12-23] MEDS: HYDROCODONE/APAP (5/325) TAB PO PRN (18:12)
[2016-12-23 19:13] LABS: ADD UMIC YES; URINE BILIRUBIN (Dip) NEGATIVE (NEGATIVE); URINE BLOOD (Dip) NEGATIVE (NEGATIVE); URINE COLOR LT. YELLOW (YELLOW); URINE GLUCOSE (Dip) NEGATIVE (NEGATIVE); URINE KETONES (Dip) NEGATIVE (NEGATIVE); URINE LEUKOCYTE ESTERASE (Dip) TRACE (NEGATIVE); URINE NITRITE (Dip) NEGATIVE (NEGATIVE); URINE TOTAL PROTEIN (Dip) NEGATIVE (NEGATIVE); URINE UROBILINOGEN (Dip) 0.2 E.U./dL (0.1-1.0)
[2016-12-23 19:22] LABS: BACTERIA,URINE FEW; SQUAMOUS EPITHELIAL CELL,UR MODERATE; URINE RBCS NONE SEEN /HPF (0)
[2016-12-23 19:31] VITALS: BP 118/77; RESP 20
[2016-12-23] MEDS: ONDANSETRON 4 MG INJ IV PRN (19:43)
[2016-12-24] MEDS: SOD CHLORIDE 0.9% 1,000 ML IV SCH ×5 (02:30→23:06)
[2016-12-24] MEDS: HYDROCODONE/APAP (5/325) TAB PO PRN ×2 (03:14→21:42)
[2016-12-24] MEDS ORDERED: LACTULOSE 30ML CUP PO ONE (08:30)
[2016-12-24] MEDS: DOCUSATE SODIUM 100 MG CAP PO SCH ×2 (08:34→20:46)
[2016-12-24] MEDS: FAMOTIDINE 20 MG INJ IV SCH ×2 (08:34→20:46)
--- NOTE | 2016-12-24 08:42 | CONS ---
Date/Time of Note Date/Time of Note DATE: 12/24/16 TIME: 08:24 Assessment/Plan Assessment/Plan Additional Assessment/Plan Nausea/vomiting Evaluate for pancreatitis MRCP: 1. Status post cholecystectomy. 2. No evidence for biliary obstruction. Normal caliber intrahepatic and extrahepatic biliary tree without evidence for choledocholithiasis. 3. Fatty liver. 4. Small cyst in the right lobe liver. Choledocholithiasis unlikely IVF Hydration Nausea and pain control Start trial of clears ERCP not clinically indicated presently Monitor LFTs, amylase Acute hepatitis panel negative Abdominal pain Continue to monitor Stool OB CT abdomen: 1. Small to moderate hiatal hernia. 2. 1.7 cm cyst in the left adnexa consistent with an ovarian cyst. 3. Small amount of free fluid in the cul-de-sac. No abdominal abscess or free air. 4. Unremarkable appendix. Transaminitis Monitor LFTs, amylase Acute hepatitis panel negative Review CMV, EBV, AMA, smooth muscle Constipation 1 dose of lactulose ordered We will continue to monitor Obesity Management per Primary Encourage weight loss Further recommendations depend on clinical course Patient seen in collaboration with Dr. Holt Consultation Date/Type/Reason Admit Date/Time December 22, 2016 at 17:58 Type of Consultation: Gastroenterology Reason for Consultation Pancreatitis Hx of Present Illness Ms.Liliana Tejada is a 36-year-old woman that reports of abrupt abdominal pain, nausea, vomiting 1 day. Patient states pain started shortly after receiving treatment in ED for otitis media. Patient returned to the hospital with abdominal pain complaints. Patient denies previous episode and allergy to antibiotics. Patient reports diffuse abdominal pain in epigastrium and lower abdomen bilaterally. Patient reports history of cholecystectomy 18 years ago. Patient denies fever, chills, diarrhea, sick contacts, travel outside the [place], and new medications other than antibiotics for otitis media. Patient denies chronic medical condition, alcoholic consumption and use of street drugs. Patient tox screen positive for opiates and cocaine but denies use of both. Patient also reports being not having a bowel movement since Monday. Patient denies previous endoscopic evaluation. Past Medical History Medical History: no pertinent history Past Surgical History Past Surgical Hx: cholecystectomy (18 years ago) Social History Smoking Status: Never smoker Exam/Review of Systems Vital Signs Vitals Vital Signs Date Time Temp Pulse Resp B/P Pulse Ox O2 Delivery O2 Flow Rate FiO2 12/23/16 20:00 Room Air 12/23/16 19:31 98.1 56 20 118/77 98 Intake and Output 12/23/16 12/23/16 12/24/16 15:00 23:00 07:00 Intake Total 2000 ml 1800 ml Output Total 700 ml 1000 ml Balance 1300 ml 800 ml Exam Constitutional: alert, oriented, well developed Psych: nl mood/affect Head: normocephalic Eyes: EOMI, nl conjunctiva, nl lids ENMT: nl external ears & nose, nl lips & teeth, nl nasal mucosa & septum Respiratory: clear to auscultation, normal air movement Cardiovascular: regular rate and rhythm Gastrointestinal: soft, diffuse abdominal tenderness Musculoskeletal: nl extremities to inspection Neurological: SILHOUETTE ARTIST II-XII intact Results Result Diagram: 12/23/1670412/23/16704 Results 24 hrs Laboratory Tests Test 12/23/16 18:20 Urine Color LT. YELLOW Urine Clarity CLEAR Urine pH 5.5 Urine Specific [place] <=1.005 L Urine Ketones NEGATIVE Urine Nitrite NEGATIVE Urine Bilirubin NEGATIVE Urine Urobilinogen 0.2 E.U./dL Urine Leukocyte Esterase TRACE H Urine Microscopic RBC NONE SEEN Urine Microscopic WBC 10-25 Urine Squamous Epithelial Cells MODERATE Urine Bacteria FEW Urine Hemoglobin NEGATIVE Urine Glucose NEGATIVE Urine Total Protein NEGATIVE Medications Medications Current Medications Famotidine (Pepcid Iv) 20 mg BID IV Last administered on 12/23/16 21:29; Admin Dose 20 MG; Start 12/22/16 at 21:00 Ondansetron HCl 4 mg 4 mg Q6H PRN IV NAUSEA AND/OR VOMITING Last administered on 12/23/16 19:43; Admin Dose 4 MG; Start 12/22/16 at 18:30 Sodium Chloride (NS) 1,000 ml @ 125 mls/hr Q8H IV Last administered on 03:14; Admin Dose 125 MLS/HR; Start 12/22/16 at 18:30 Docusate Sodium (Colace) 100 mg BID PO Last administered on 12/23/16 21:29; Admin Dose 100 MG; Start 12/22/16 at 21:00 Acetaminophen/ Hydrocodone Bitart ([place] (5/325)) 1 tab Q6H PRN PO pain Last administered on 12/24/16 03:14; Admin Dose 1 TAB; Start 12/22/16 at 18:30 Morphine Sulfate (morphine) 2 mg Q4H PRN IV pain Last administered on 12/23/16t 19:44; Admin Dose 2 MG; Start 12/22/16 at 18:30 JEOVANY BUSTILLO December 24, 2016 08:34
[2016-12-24] MEDS ORDERED: ACETAMINOPHEN 325 MG TAB PO PRN (10:00)
[2016-12-24] MEDS: ONDANSETRON 4 MG INJ IV PRN (10:09)
[2016-12-24 10:29] LABS: ADD SCAN DIFF NO
[2016-12-24 10:54] LABS: ALBUMIN 4.1 g/dl (3.3-4.9); ALBUMIN/GLOBULIN RATIO 1.2; BILIRUBIN,INDIRECT 0.9 mg/dl (0-1.1); BILIRUBIN,TOTAL 0.9 mg/dl (0.2-1.3); CALCIUM 9.2 mg/dl (8.4-10.2); CREATININE 0.54 mg/dl (0.44-1.00); POTASSIUM 3.9 mmol/L (3.5-5.1); TOTAL PROTEIN 7.5 g/dl (6.1-8.1)
--- NOTE | 2016-12-24 11:08 | PN ---
Date/Time of Note Date/Time of Note DATE: 12/24/16 TIME: 11:06 Assessment/Plan VTE Prophylaxis VTE Prophylaxis Intervention: other Lines/Catheters IV [facility] Peripheral IV Urinary Cath still in place: No Assessment/Plan Problems: (1) Pancreatitis Status: Acute Comment: Her numbers for the pancreatitis are improving nicely as are her symptoms. Should still however is not out of the marte and will continue observation for 24 more hours at least. Regarding the incident that set it off I do not believe this is biliary. I suspect this is a drug-induced pancreatitis. In discussion with the patient she states that she does not use alcohol and states she does not use cocaine. I informed her that her tox screens were positive and she states she has no idea how this happened and maybe was from her foot surgery a month ago. I have counseled her on cessation. Qualifiers: Chronicity: acute Pancreatitis type: drug induced Acute pancreatitis complication: no infection or necrosis Qualified Code: K85.30 - Drug-induced acute pancreatitis without infection or necrosis Subjective 24 Hr Interval Summary Free Text/Dictation Patient reports she still has nausea and feeling like she wants to throw up. She reports this is better than before but is not gone Constitutional: no complaints Respiratory: no complaints Cardiovascular: no complaints Exam/Review of Systems Vital Signs Vitals Vital Signs Date Time Temp Pulse Resp B/P Pulse Ox O2 Delivery O2 Flow Rate FiO2 12/23/16 20:00 Room Air 12/23/16 19:31 98.1 56 20 118/77 98 Intake and Output 12/23/16 12/23/16 12/24/16 15:00 23:00 07:00 Intake Total 2000 ml 1800 ml Output Total 700 ml 1000 ml Balance 1300 ml 800 ml Exam Constitutional: alert, oriented Neck: non-tender, supple Respiratory: clear to auscultation, normal air movement Cardiovascular: nl pulses, regular rate and rhythm Results Result Diagram: 12/23/16 0705 12/24/16 1015 Results 24 hrs Laboratory Tests Test 12/23/16 18:20 12/24/16 10:15 Urine Color LT. YELLOW Urine Clarity CLEAR Urine pH 5.5 Urine Specific [place] <=1.005 L Urine Ketones NEGATIVE Urine Nitrite NEGATIVE Urine Bilirubin NEGATIVE Urine Urobilinogen 0.2 E.U./dL Urine Leukocyte Esterase TRACE H Urine Microscopic RBC NONE SEEN Urine Microscopic WBC 10-25 Urine Squamous Epithelial Cells MODERATE Urine Bacteria FEW Urine Hemoglobin NEGATIVE Urine Glucose NEGATIVE Urine Total Protein NEGATIVE Sodium Level 140 Potassium Level 3.9 Chloride Level 107 Carbon Dioxide Level 25 Anion Gap 12 Blood Urea Nitrogen 6 L Creatinine 0.54 Glucose Level 97 Calcium Level 9.2 Total Bilirubin 0.9 Direct Bilirubin 0.00 Indirect Bilirubin 0.9 Aspartate Amino Transf (AST/SGOT) 98 H Alanine Aminotransferase (ALT/SGPT) 269 H Alkaline Phosphatase 121 Total Protein 7.5 # Albumin 4.1 Globulin 3.40 H Albumin/Globulin Ratio 1.20 Amylase Level 66 Lipase 78 Medications Medications Current Medications Famotidine (Pepcid Iv) 20 mg BID IV Last administered on 12/24/16 08:34; Admin Dose 20 MG; Start 12/22/16 at 21:00 Ondansetron HCl 4 mg 4 mg Q6H PRN IV NAUSEA AND/OR VOMITING Last administered on 12/24/16 10:09; Admin Dose 4 MG; Start 12/22/16 at 18:30 Sodium Chloride (NS) 1,000 ml @ 125 mls/hr Q8H IV Last administered on 03:14; Admin Dose 125 MLS/HR; Start 12/22/16 at 18:30 Docusate Sodium (Colace) 100 mg BID PO Last administered on 12/24/16 08:34; Admin Dose 100 MG; Start 12/22/16 at 21:00 Acetaminophen/ Hydrocodone Bitart ([place] (5/325)) 1 tab Q6H PRN PO pain Last administered on 12/24/16 03:14; Admin Dose 1 TAB; Start 12/22/16 at 18:30 Morphine Sulfate (morphine) 2 mg Q4H PRN IV pain Last administered on 12/23/16 19:44; Admin Dose 2 MG; Start 12/22/16 at 18:30 Acetaminophen (Tylenol Tab) 650 mg Q6H PRN PO PAIN AND OR ELEVATED TEMP; Start 12/24/16 at 10:00 ASYA STANTON MD December 24, 2016 11:08
[2016-12-24 11:29] LABS: BASOPHILS % 0.5 % (0.0-2.0); EOSINOPHILS # 0.2 10^3/ul (0.0-0.5); EOSINOPHILS % 2.7 % (0.0-7.0); HEMATOCRIT 36.5 % (37.0-47.0); HEMOGLOBIN 11.7 g/dl (12.0-16.0); LYMPHOCYTES # 2.6 10^3/ul (0.8-2.9); MEAN CORPUSCULAR HEMOGLOBIN 25.9 pg (29.0-33.0); MEAN CORPUSCULAR HGB CONC 32.1 g/dl (32.0-37.0); MEAN CORPUSCULAR VOLUME 80.9 fl (82.0-101.0); MEAN PLATELET VOLUME 10.6 fl (7.4-10.4); MONOCYTE # 0.3 10^3/ul (0.3-0.9); MONOCYTES % 5.1 % (0.0-11.0); NEUTROPHIL # 2.5 10^3/ul (1.6-7.5); NEUTROPHILS % 45.5 % (39.0-77.0); PLATELET COUNT 277 10^3/UL (140-415); RED BLOOD COUNT 4.51 10^6/ul (4.20-5.40); RED CELL DISTRIBUTION WIDTH 13.6 % (11.5-14.5); WHITE BLOOD COUNT 5.5 10^3/ul (4.8-10.8)
[2016-12-24 20:00] VITALS: BP 117/78; PULSE 61; RESP 18
[2016-12-25] MEDS: SOD CHLORIDE 0.9% 1,000 ML IV SCH (02:30)
[2016-12-25 07:41] LABS: ALBUMIN 3.5 g/dl (3.3-4.9)
[2016-12-25 07:42] LABS: POTASSIUM 3.8 mmol/L (3.5-5.1)
[2016-12-25 07:44] LABS: ALBUMIN/GLOBULIN RATIO 1.12; BILIRUBIN,INDIRECT 0.9 mg/dl (0-1.1); BILIRUBIN,TOTAL 0.9 mg/dl (0.2-1.3); CREATININE 0.6 mg/dl (0.44-1.00); TOTAL PROTEIN 6.6 g/dl (6.1-8.1)
[2016-12-25 07:45] LABS: CALCIUM 8.9 mg/dl (8.4-10.2)
[2016-12-25 07:54] VITALS: BP 127/73; RESP 18
--- NOTE | 2016-12-25 08:23 | PDOCDIS ---
Discharge Instructions DIAGNOSIS Discharge Diagnosis: Acute pancreatitis; migraine syndrome; obesity CONDITION Patient Condition: Fair HOME CARE INSTRUCTIONS: Special Diet: Clear Liquids advance in the next 24 hours to regular ACTIVITY: Activity Restrictions: No Restrictions FOLLOW UP/APPOINTMENTS Appointments Primary physician in 1 week podiatry surgeons in the next 2 weeks ASYA STANTON MD December 25, 2016 08:23
--- NOTE | 2016-12-25 08:33 | DS ---
Date/Time of Note Date/Time of Note DATE: 12/25/16 TIME: 08:24 Discharge Summary Admission/Discharge Info Admit Date/Time December 22, 2016 at 17:58 Discharge Date/Time 12/25/2016 Final Diagnosis Acute pancreatitis; migraine syndrome; obesity; status post foot surgery; Patient Condition: Good Consults Gastroenterology Procedures Abdominal ultrasound; MRCP; abdominal pelvic CT scan Hx of Present Illness Ms. Tejada is a 36-year-old female who was seen earlier in the day in our emergency room because of fullness in the left side of her ear and having ear discomfort and neck discomfort as well. At that time, she was evaluated in the ER and thought she might have some otitis media. She was medicated and the patient was sent home. On her way home, she developed excruciating mid epigastric abdominal pain that radiated to her back. She has never had similar pain before. She does have a history of gallstones and is status post cholecystectomy but she says this pain was different. She rated the pain as 10/ 10. It was associated with multiple episodes of vomiting. The patient had no fever. There was no blood in her vomit. She has had no diarrhea and she has not noted black stools. She had no chest pain, otherwise no shortness of breath. She does not have loss of appetite. Her CBC was unremarkable but positive for a low MCV and MCH and a neutrophilia. On her chemistry, her AST and ALT were elevated with AST being almost double ALT at 279 and 150. Her lipase was quite elevated as well at 1240. The urine was nitrite positive with trace ketones, bacteria and calcium oxalate crystals and urine tox screen was positive for opiates and cocaine. ASSESSMENT: 1. Acute pancreatitis with transaminitis which could be secondary to drug use as well as inflammatory or infectious hepatitis. We will have to rule out occult gallstones. 2. Cocaine use/ . 3. Probable urinary tract infection. 4. Obesity. 5. IODINE, LATEX AND SHELLFISH allergy. Hospital Course Ms.Liliana Tejada is a 36-year-old woman that reports of abrupt abdominal pain, nausea, vomiting 1 day. Patient states pain started shortly after receiving treatment in ED for otitis media. Patient returned to the hospital with abdominal pain complaints. Patient denies previous episode and allergy to antibiotics. Patient reports diffuse abdominal pain in epigastrium and lower abdomen bilaterally. Patient reports history of cholecystectomy 18 years ago. Patient denies fever, chills, diarrhea, sick contacts, travel outside the [place], and new medications other than antibiotics for otitis media. Patient denies chronic medical condition, alcoholic consumption and use of street drugs. Patient tox screen positive for opiates and cocaine but denies use of both. Patient also reports being not having a bowel movement since Monday. Patient denies previous endoscopic evaluation. Patient was observed on supportive therapy. She has resolved her symptoms nicely by clinical and biochemical measures. She is now the point where she is taking p.o. and is stable for discharge. Please note she raises the question that her tox screen may be a false positive or have been accidentally switched somewhere along the line. This has been repeated for blood and urine and is pending at this time. She is now stable for discharge she is improved condition as compared to the time of admission she has good rehabilitation potential she has no known communicable diseases. Home Meds Reported Medications Cyanocobalamin* (Vitamin B-12*) 50 Mcg Tablet, 50 MCG PO DAILY, TAB 12/22/16 Discontinued Scripts Ondansetron (Zofran Odt) 4 Mg Tab.rapdis, 4 MG PO Q6, #14 Prov:ASYA DOYLE DO 12/22/16 Naproxen* (Naprosyn*) 500 Mg Tablet, 500 MG PO BID Y for PAIN AND/OR INFLAMMATION, #30 TAB Prov:ASYA DOYLE DO 12/22/16 Hydrocodone/Acetaminophen ([place] 5-325 Tablet) 1 Each Tablet, 1 EACH PO Q6, #10 TAB Prov:ASYA DOYLE DO 12/22/16 Amoxicillin/Potassium Clav (Amox-Clav 875-125 mg Tablet) 875-125 mg Tab, 1 TAB PO BID, #18 TAB Prov:ASYA DOYLE DO 12/22/16 Ondansetron (Ondansetron Odt) 4 Mg Tab.rapdis, 4 MG PO Q6H Y for NAUSEA AND/OR VOMITING, #30 TAB Prov:LU AZEVEDO MD 11/11/16 Hydromorphone Hcl* (Dilaudid*) 2 Mg Tablet, 2 MG PO Q6H Y for PAIN, #12 TAB Prov:LU AZEVEDO MD 11/11/16 Sulfamethoxazole-Trimethoprim* (Bactrim* DS) 800-160 Mg Tab, 1 TAB PO BID for 5 Days, TAB Prov:SAAD RIVERA. WATER PUMPER 06/25/16 Cephalexin* (Keflex*) 500 Mg Capsule, 500 MG PO QID for 5 Days, CAP Prov:SAAD RIVERA X. WATER PUMPER 06/25/16 Ibuprofen* (Motrin*) 600 Mg Tab, 600 MG PO Q6H Y for PAIN AND OR ELEVATED TEMP, #30 TAB Prov:SAAD RIVERA X. WATER PUMPER 06/25/16 Ondansetron Hcl* (Zofran*) 4 Mg Tablet, 4 MG PO Q6H for NAUSEA AND/OR VOMITING, #30 TAB Prov:MANAGUELOD,ISAIAH P WATER PUMPER 06/19/16 Famotidine* (Pepcid*) 20 Mg Tablet, 20 MG PO BID for 10 Days, #20 TAB Prov:MANAGUELOD,ISAIAH P WATER PUMPER 06/19/16 Pending Labs Laboratory Tests Test 12/24/16 10:15 12/25/16 06:35 White Blood Count 5.510^3/ul (4.8-10.8) Red Blood Count 4.5110^6/ul (4.20-5.40) Hemoglobin 11.7g/dl (12.0-16.0) Hematocrit 36.5% (37.0-47.0) Mean Corpuscular Volume 80.9fl (82.0-101.0) Mean Corpuscular Hemoglobin 25.9pg (29.0-33.0) Mean Corpuscular Hemoglobin Concent 32.1g/dl (32.0-37.0) Red Cell Distribution Width 13.6% (11.5-14.5) Platelet Count 70109^3/UL (140-415) Mean Platelet Volume 10.6fl (7.4-10.4) Neutrophils % 45.5% (39.0-77.0) Lymphocytes % 46.0% (15.0-51.0) Monocytes % 5.1% (0.0-11.0) Eosinophils % 2.7% (0.0-7.0) Basophils % 0.5% (0.0-2.0) Nucleated Red Blood Cells % 0.0/100WBC (0.0-0.0) Neutrophils # 2.510^3/ul (1.6-7.5) Lymphocytes # 2.610^3/ul (0.8-2.9) Monocytes # 0.310^3/ul (0.3-0.9) Eosinophils # 0.210^3/ul (0.0-0.5) Basophils # 0.010^3/ul (0.0-0.1) Nucleated Red Blood Cells # 0.010^3/ul (0.0-0.0) Sodium Level 140mmol/L (135-144) 142mmol/L (135-144) Potassium Level 3.9mmol/L (3.5-5.1) 3.8mmol/L (3.5-5.1) Chloride Level 107mmol/L (97-110) 105mmol/L (97-110) Carbon Dioxide Level 25mmol/L (21-31) 27mmol/L (21-31) Anion Gap 12 (8-16) 14 (8-16) Blood Urea Nitrogen 6mg/dl (7-20) 7mg/dl (7-20) Creatinine 0.54mg/dl (0.44-1.00) 0.60mg/dl (0.44-1.00) Glucose Level 97mg/dl (70-220) 88mg/dl (70-220) Calcium Level 9.2mg/dl (8.4-10.2) 8.9mg/dl (8.4-10.2) Total Bilirubin 0.9mg/dl (0.2-1.3) 0.9mg/dl (0.2-1.3) Direct Bilirubin 0.00mg/dl (0.00-0.20) 0.00mg/dl (0.00-0.20) Indirect Bilirubin 0.9mg/dl (0-1.1) 0.9mg/dl (0-1.1) Aspartate Amino Transf (AST/SGOT) 98IU/L (15-46) 51IU/L (15-46) Alanine Aminotransferase (ALT/SGPT) 269IU/L (13-69) 171IU/L (13-69) Alkaline Phosphatase 121IU/L (42-121) 86IU/L (42-121) Total Protein 7.5g/dl (6.1-8.1) 6.6g/dl (6.1-8.1) Albumin 4.1g/dl (3.3-4.9) 3.5g/dl (3.3-4.9) Globulin 3.40g/dl (1.3-3.2) 3.10g/dl (1.3-3.2) Albumin/Globulin Ratio 1.20 1.12 Amylase Level 66U/L (11-123) 61U/L (11-123) Lipase 78U/L (23-300) 68U/L (23-300) Pending her the repeat urine and blood tox screens ASYA STANTON MD December 25, 2016 08:33
[2016-12-25 09:21] LABS: ADD SCAN DIFF NO
[2016-12-25] MEDS: FAMOTIDINE 20 MG INJ IV SCH (09:24)
[2016-12-25] MEDS: DOCUSATE SODIUM 100 MG CAP PO SCH (09:24)
[2016-12-25 09:45] LABS: BASOPHILS % 0.5 % (0.0-2.0); EOSINOPHILS # 0.2 10^3/ul (0.0-0.5); EOSINOPHILS % 2.7 % (0.0-7.0); HEMATOCRIT 35.5 % (37.0-47.0); HEMOGLOBIN 11.1 g/dl (12.0-16.0); LYMPHOCYTES # 2.6 10^3/ul (0.8-2.9); LYMPHOCYTES % 45.9 % (15.0-51.0); MEAN CORPUSCULAR HEMOGLOBIN 25.6 pg (29.0-33.0); MEAN CORPUSCULAR HGB CONC 31.3 g/dl (32.0-37.0); MEAN PLATELET VOLUME 10.7 fl (7.4-10.4); MONOCYTE # 0.3 10^3/ul (0.3-0.9); MONOCYTES % 5.1 % (0.0-11.0); NEUTROPHIL # 2.6 10^3/ul (1.6-7.5); NEUTROPHILS % 45.6 % (39.0-77.0); PLATELET COUNT 262 10^3/UL (140-415); RED BLOOD COUNT 4.33 10^6/ul (4.20-5.40); RED CELL DISTRIBUTION WIDTH 13.8 % (11.5-14.5); WHITE BLOOD COUNT 5.7 10^3/ul (4.8-10.8)
[2016-12-27 12:38] LABS: CYTOMEGALOVIRUS ANTIBODY (IGG) >10.00 U/mL
[2016-12-27 14:08] LABS: MITOCHONDRIAL TB NEGATIVE (NEGATIVE)
[2016-12-27 18:04] LABS: CYTOMEGALOVIRUS ANTIBODY (IGM) <30.00 AU/mL
== END 2016-12-25 14:35 | disposition home or self-care (01) | DRG 440 ==
LOC: FTE 13:31 → MS2 17:58
PROVIDERS: ADMIT Family Medicine; ATTEND Family Medicine
DX: K85.30 Drug induced acute pancreatitis without necrosis or infection (principal); F14.10 Cocaine abuse, uncomplicated; T40.5X5A Adverse effect of cocaine, initial encounter; Y92.019 Unspecified place in single-family (private) house as the place of occurrence of the external cause; E66.9 Obesity, unspecified; Z68.33 Body mass index [BMI] 33.0-33.9, adult; E86.0 Dehydration; K59.00 Constipation, unspecified; G43.909 Migraine, unspecified, not intractable, without status migrainosus; Z91.041 Radiographic dye allergy status; Z91.013 Allergy to seafood; Z91.040 Latex allergy status; Z90.49 Acquired absence of other specified parts of digestive tract; Z98.890 Other specified postprocedural states
CPT/HCPCS: 36415; 74176; 74181; 76705; 80053; 80061; 80306; 80307; 81001; 81003; 82150; 83036; 83690; 83735; 84443; 85025; 86255; 86644; 86664; 86706; 86803; 87086; 87340; 96361; 96374; 96375; 96376; J2060; J2270; J2405; J2765; J7030

== ENCOUNTER 2017-05-23 11:43 | Emergency (ER) | payer OTHER ==
[~2017-05-23] VITALS: Ht 152.4 cm; Wt 83.0 kg
[~2017-05-23 11:43] MED LIST changes: -AMOX1TAB10 PO; -BACTDS PO; -CEPH-443 PO; +CYAN50TA PO; -FAMO-18 PO; -HYDR-906 PO; -HYDR2TAB15 PO; -IBUP-1542 PO; -NAPR-260 PO; -ONDA4TAB11 PO; -ONDA4TAB14 PO; -ONDA4TAB8 PO
[2017-05-23 11:44] VITALS: Ht 152.4 cm; Wt 83.0 kg
[2017-05-23] MEDS ORDERED: ONDANSETRON 4 MG INJ IV STA (12:29)
[2017-05-23] MEDS ORDERED: morphine 4 MG/ML VIAL IV STA (12:29)
[2017-05-23] MEDS ORDERED: SOD CHLORIDE 0.9% 1,000 ML IV STA (12:29)
[2017-05-23 13:28] LABS: BASOPHILS % 0.4 % (0.0-2.0); EOSINOPHILS # 0.1 10^3/ul (0.0-0.5); EOSINOPHILS % 1.8 % (0.0-7.0); HEMATOCRIT 35.9 % (37.0-47.0); HEMOGLOBIN 11.7 g/dl (12.0-16.0); LYMPHOCYTES # 2.3 10^3/ul (0.8-2.9); LYMPHOCYTES % 32.5 % (15.0-51.0); MEAN CORPUSCULAR HEMOGLOBIN 26.3 pg (29.0-33.0); MEAN CORPUSCULAR HGB CONC 32.6 g/dl (32.0-37.0); MEAN CORPUSCULAR VOLUME 80.7 fl (82.0-101.0); MEAN PLATELET VOLUME 10.1 fl (7.4-10.4); MONOCYTE # 0.4 10^3/ul (0.3-0.9); MONOCYTES % 5.4 % (0.0-11.0); NEUTROPHIL # 4.2 10^3/ul (1.6-7.5); NEUTROPHILS % 59.6 % (39.0-77.0); PLATELET COUNT 265 10^3/UL (140-415); RED BLOOD COUNT 4.45 10^6/ul (4.20-5.40); RED CELL DISTRIBUTION WIDTH 14.6 % (11.5-14.5); WHITE BLOOD COUNT 7.1 10^3/ul (4.8-10.8)
[2017-05-23 13:30] LABS: ADD UMIC NO; UR ASCORBIC ACID NEGATIVE (NEGATIVE); UR BILIRUBIN (Dip) NEGATIVE (NEGATIVE); UR BLOOD (Dip) NEGATIVE (NEGATIVE); UR CLARITY CLEAR (CLEAR); UR COLOR YELLOW (YELLOW); UR GLUCOSE (Dip) NEGATIVE (NEGATIVE); UR KETONES (Dip) TRACE mg/dL (NEGATIVE); UR LEUKOCYTE ESTERASE (Dip) NEGATIVE Leu/ul (NEGATIVE); UR NITRITE (Dip) NEGATIVE (NEGATIVE); UR SPECIFIC GRAVITY (Dip) 1.023 (1.003-1.030); UR TOTAL PROTEIN (Dip) NEGATIVE (NEGATIVE); UR UROBILINOGEN (Dip) NEGATIVE (NEGATIVE)
--- NOTE | 2017-05-23 13:43 | RADRPT ---
PROCEDURE: CT abdomen and pelvis without contrast. CLINICAL INDICATION: Abdominal pain TECHNIQUE: Continues 2.5 mm axial images were obtained from the domes of the diaphragms to the inf erior pubic rami. No oral or intravenous contrast was administered. The calculated dose length prod uct (DLP) = 1311.87 mGy-cm. Exam CTDlvol = 22.69 mGy. One or more of the following dose reduction techniques were used: Automated exposure control, adjustment of the mA and or KV according to patie nt size, or use of iterative reconstruction technique. One or more of the following dose reduction techniques were used: Automated exposure control, adjustment of the mA and or KV according to patien t size, or use of iterative reconstruction technique. COMPARISON: 12/22/2016 FINDINGS: The lung bases are clear. No pleural pericardial fluid is seen. There is a small hiatal hernia. Gallbladder surgically absent. There is no residual biliary duct dilatation. There is fatty change o f the liver. Otherwise, liver, pancreas, spleen, adrenals, and kidneys are within normal limits on t his noncontrast study. Is no evidence of renal calculi or obstructive uropathy. Aorta is normal in c aliber. No pathologically enlarged mesenteric lymph nodes are seen. Stomach and small bowel loops ar e within normal limits. There is no small bowel dilatation or obstruction. No free fluid, free air, abscess is noted in the upper abdomen CT pelvis: Images through the pelvis demonstrate physiologic free fluid in the right posterior cul- de-sac. No abscess or free air is seen. The bladder is partially distended, but grossly unremarkable . Uterus is retroverted. There is fluid and debris in the vaginal cuff. Small cysts/follicles are no john in both ovaries. Evaluation of the colon demonstrates no diverticulosis, diverticulitis or acute colitis. Normal appendix is visualized. Terminal ileum is unremarkable. There are no pathologically enlarged iliac chain lymph nodes. No destructive bony lesions are seen. IMPRESSION: 1. Physiologic free fluid is noted in the right posterior cul-de-sac of the pelvis. This is likely ovarian in etiology and related to a ruptured cyst. 2. Small follicles/cysts within both ovaries. If indicated this can be better evaluated with pelvic ultrasound. 3. Debris and fluid and the vaginal cuff which may represent ongoing menses. 4. Normal appendix and terminal ileum. 5. Status post cholecystectomy. 6. Mild fatty liver. 7. Small hiatal hernia RPTAT: HH .Armond De La Paz MD, MD Date Time Electronically viewed and signed by .Armond De La Paz MD, MD on 05/23/2017 13:42 .W/
[2017-05-23 13:52] LABS: ALBUMIN/GLOBULIN RATIO 1.14; BILIRUBIN,INDIRECT 0.5 mg/dl (0-1.1); BILIRUBIN,TOTAL 0.5 mg/dl (0.2-1.3); CALCIUM 9.3 mg/dl (8.4-10.2); CREATININE 0.58 mg/dl (0.44-1.00); POTASSIUM 3.8 mmol/L (3.5-5.1); TOTAL PROTEIN 7.5 g/dl (6.1-8.1)
[2017-05-23] MEDS ORDERED: KETOROLAC 30 MG INJ IV STA (14:07)
--- NOTE | 2017-05-23 14:49 | RADRPT ---
PROCEDURE: US Pelvis. CLINICAL INDICATION: Pelvic pain TECHNIQUE: Multiple sonographic images of the pelvis were obtained utilizing a transabdominal and endovaginal technique. The images were reviewed on a PACS workstation. COMPARISON: Pelvic ultrasound from 01/02/[address] abdomen pelvis from 05/23/2017 FINDINGS: The uterus is visualized and measures 10.3 x 5.6 x 8 cm in size. No uterine mass is seen. The endome trial echo complex is normal and measures 7.2 mm. There is a trace amount of free fluid. The right o vary has a normal echotexture and measures 2.9 x 1.9 x 2.1 cm. A dominant follicle on the left ovary is seen measuring 1.7 cm in size in maximal diameter. The left ovary otherwise has a normal echotex ture and measures 3.6 x 2.3 x 2.7 cm. No adnexal masses are noted. IMPRESSION: 1. Trace amount of free fluid in the pelvis with a dominant follicle in the left ovary, the finding s of which are likely physiologic in nature. 2. Otherwise, unremarkable pelvic ultrasound. RPTAT: HPNM Physician Belén Date Time Electronically viewed and signed by Physician Belén on 05/23/2017 14:49 /
--- NOTE | 2017-05-23 15:03 | ERD ---
ER Documentation Chief Complaint Date/Time DATE: 05/23/17 TIME: 14:57 Chief Complaint ap x 3 days HPI 36-year-old female presents emergency room with abdominal pain 3 days the abdominal pain is in her right mid abdomen. Her primary care doctor told her she should come to the emergency room to rule out appendicitis. Has had diarrhea with some nausea and vomiting for the last 3 days. Diarrhea is copious and watery. Had no vaginal symptoms. Patient has had her gallbladder removed, has had her tubes tied, and a . ROS All systems reviewed and are negative except as per history of present illness. Medications Home Meds Reported Medications Cyanocobalamin* (Vitamin B-12*) 50 Mcg Tablet, 50 MCG PO DAILY, TAB 12/22/16 Allergies Allergies: Coded Allergies: iodine (Unverified Allergy, Unknown, 05/23/17) latex (Verified Allergy, Unknown, 05/23/17) povidone-iodine (Unverified Allergy, Unknown, 05/23/17) soap (Unverified Allergy, Unknown, 05/23/17) Uncoded Allergies: SHELLFISH (Allergy, Unknown, 02/19/16) PMhx/Soc History of Surgery: Yes (bunion removal of the right foot, cholecystectomy) Anesthesia Reaction: No Hx Neurological Disorder: No Hx Respiratory Disorders: No Hx Cardiac Disorders: No Hx Psychiatric Problems: No Hx Miscellaneous Medical Probl: Yes (courtney) Hx Alcohol Use: No Hx Substance Use: No Hx Tobacco Use: No Smoking Status: Never smoker Physical Exam Vitals Vital Signs Date Time Temp Pulse Resp B/P Pulse Ox O2 Delivery O2 Flow Rate FiO2 05/23/17 11:44 98.1 72 18 122/61 99 Physical Exam Const: [] No distress Head: Atraumatic Eyes: Normal Conjunctiva ENT: Normal External Ears, Nose and Mouth. Neck: Full range of motion..~ No meningismus. Resp: Clear to auscultation bilaterally Cardio: Regular rate and rhythm, no murmurs Abd: Soft, mild right mid abdomen tenderness without guarding or rebound, nondistended. Normal bowel sounds Skin: No petechiae or rashes Back: No midline or flank tenderness Ext: No cyanosis, or edema Neur: Awake and alert and oriented 3, no focal deficits Psych: Normal Mood and Affect Result Diagram: 05/23/17 1257 05/23/17 1257 Results 24 hrs Laboratory Tests Test 05/23/17 12:57 05/23/17 13:02 White Blood Count 7.110^3/ul Red Blood Count 4.4510^6/ul Hemoglobin 11.7g/dl Hematocrit 35.9% Mean Corpuscular Volume 80.7fl Mean Corpuscular Hemoglobin 26.3pg Mean Corpuscular Hemoglobin Concent 32.6g/dl Red Cell Distribution Width 14.6% Platelet Count 29172^3/UL Mean Platelet Volume 10.1fl Neutrophils % 59.6% Lymphocytes % 32.5% Monocytes % 5.4% Eosinophils % 1.8% Basophils % 0.4% Nucleated Red Blood Cells % 0.0/100WBC Neutrophils # 4.210^3/ul Lymphocytes # 2.310^3/ul Monocytes # 0.410^3/ul Eosinophils # 0.110^3/ul Basophils # 0.010^3/ul Nucleated Red Blood Cells # 0.010^3/ul Sodium Level 138mmol/L Potassium Level 3.8mmol/L Chloride Level 103mmol/L Carbon Dioxide Level 30mmol/L Anion Gap 9 Blood Urea Nitrogen 8mg/dl Creatinine 0.58mg/dl Glucose Level 91mg/dl Calcium Level 9.3mg/dl Total Bilirubin 0.5mg/dl Direct Bilirubin 0.00mg/dl Indirect Bilirubin 0.5mg/dl Aspartate Amino Transf (AST/SGOT) 30IU/L Alanine Aminotransferase (ALT/SGPT) 56IU/L Alkaline Phosphatase 73IU/L Total Protein 7.5g/dl Albumin 4.0g/dl Globulin 3.50g/dl Albumin/Globulin Ratio 1.14 Lipase 66U/L Urine Color YELLOW Urine Clarity CLEAR Urine pH 5.0 Urine Specific [place] 1.023 Urine Ketones TRACEmg/dL Urine Nitrite NEGATIVEmg/dL Urine Bilirubin NEGATIVEmg/dL Urine Urobilinogen NEGATIVEmg/dL Urine Leukocyte Esterase NEGATIVELeu/ul Urine Hemoglobin NEGATIVEmg/dL Urine Glucose NEGATIVEmg/dL Urine Total Protein NEGATIVEmg/dl Current Medications Medications (Trade) Dose Ordered Sig/Morales Route PRN Reason Start Time Stop Time Status Last Admin Dose Admin Sodium Chloride (NS) 1,000 ml @ 1,000 mls/hr Q1H STAT IV 05/23/17 12:29 05/23/17 13:28 DC 05/23/17 13:12 Morphine Sulfate (morphine) 4 mg ONCE STAT IV 05/23/17 12:29 05/23/17 12:31 DC 05/23/17 13:12 Ondansetron HCl (Zofran Inj) 4 mg ONCE STAT IV 05/23/17 12:29 05/23/17 12:31 DC 05/23/17 13:12 Ketorolac Tromethamine (Toradol) 30 mg ONCE STAT IV 05/23/17 14:07 05/23/17 14:27 DC 05/23/17 14:39 Procedures/MDM Acute abdominal pain with diarrhea and vomiting likely secondary to gastroenteritis. Patient also may have had a ruptured ovarian cyst. Appendix is normal in appearance. Patient was hydrated with normal saline given morphine and Toradol emergency room which decreased her pain significantly. We will discharge with gynecological and primary care follow-up as well as strict return precautions. The abdomen pelvis interpretation: Some small amount of free fluid in the pelvis possible ruptured ovarian cyst, I see no intestinal obstruction, no free air, normal appendix, no fractures Pelvic ultrasound interpretation: Small amount of free fluid likely physiologic without any ovarian torsion or any other serious abnormalities. Departure Diagnosis: Primary Impression: Diarrhea Additional Impression: Acute abdominal pain Condition: Stable ASYA DOYLE DO May 23, 2017 15:03
[2017-05-23] MEDS ORDERED: ONDA4TAB11 PO (15:05)
[2017-05-23] MEDS ORDERED: NAPR-688 PO (15:05)
[2017-05-23] MEDS ORDERED: HYDR-906 PO (15:05)
[2017-05-23 15:42] VITALS: BP 118/58; PULSE 56; RESP 18
== END 2017-05-23 15:44 | disposition home or self-care (01) ==
LOC: FTE 11:43
DX: R19.7 Diarrhea, unspecified (principal); R11.2 Nausea with vomiting, unspecified; Z91.040 Latex allergy status
CPT/HCPCS: 36415; 74176; 76830; 76856; 80053; 81003; 83690; 85025; 96374; 96375; J1885; J2270; J2405; J7030; Z7502

== ENCOUNTER 2017-06-08 12:22 | Day surgery (SDC) | payer OTHER ==
[~2017-06-08] VITALS: Ht 162.6 cm; Wt 87.1 kg
[2017-06-08] VITALS (14 sets, daily range): BP systolic 97–124; BP diastolic 56–73; PULSE 63–88; RESP 11–24; Ht 162.6 cm; Wt 87.1 kg
[~2017-06-08 12:22] MED LIST changes: +HYDR-906 PO; +NAPR-688 PO; +ONDA4TAB11 PO
--- NOTE | 2017-06-08 13:50 | HPN ---
Date/Time of Note Date/Time of Note DATE: 06/08/17 TIME: 13:50 Interval H&P Admission Note Pt. seen H&P reviewed: No system changes REYES MCCRACKEN Jun 08, 2017 13:50
[2017-06-08] MEDS ORDERED: MIDAZOLAM 1 MG/ML 2 ML INJ ONE ×2 (15:11→16:10)
[2017-06-08] MEDS ORDERED: METOCLOPRAMIDE 10 MG INJ ONE ×2 (15:11→16:51)
[2017-06-08] MEDS ORDERED: PROPOFOL 20 ML ONE ×2 (15:14→16:09)
[2017-06-08] MEDS ORDERED: FENTAnyl 50 MCG/ML VIAL ONE ×2 (15:14→16:10)
[2017-06-08] MEDS ORDERED: KETOROLAC 30 MG INJ ONE (15:14)
[2017-06-08] MEDS ORDERED: CEFAZOLIN 1 GM INJ ONE ×2 (15:14→16:09)
[2017-06-08] MEDS ORDERED: BUPIVACAINE 0.5% (SDV) 30 ML INJ ONE (15:28)
[2017-06-08] MEDS ORDERED: LIDOCAINE 1% (MPF) 30 ML INJ ONE (15:28)
[2017-06-08] MEDS ORDERED: GLYCOPYRROLATE 0.4 MG INJ ONE (16:09)
[2017-06-08] MEDS ORDERED: ROCURONIUM 50 MG INJ ONE (16:09)
[2017-06-08] MEDS ORDERED: NEOSTIGMINE 3 MG/3 ML SYRINGE ONE (16:09)
[2017-06-08] MEDS ORDERED: DEXAMETHASONE 4 MG/ML 1 ML INJ ONE (16:10)
[2017-06-08] MEDS ORDERED: ONDANSETRON 4 MG INJ ONE ×2 (16:10→16:53)
[2017-06-08] MEDS ORDERED: SUGAMMADEX SODIUM 200 MG/2 ML VIAL IV ONE (16:50)
--- NOTE | 2017-06-08 16:51 | OPPN ---
Date/Time of Note Date/Time of Note DATE: 06/08/17 TIME: 16:51 Operative Report Preoperative Diagnosis left carpal tunnel syndrome Postoperative Diagnosis left carpal tunnel syndrome Operation/Procedure Performed left carpal tunnel release Surgeon see signature line business assistant none Anesthesia: general Estimated blood loss: 0 - 10 ml's Transfusion Required none Specimen none Grafts/Implants none Complications none REYES MCCRACKEN Jun 08, 2017 16:51
[2017-06-08] MEDS ORDERED: MIDAZOLAM 1 MG/ML 2 ML INJ IV PRN (17:00)
[2017-06-08] MEDS ORDERED: ALBUTEROL 0.083% (NEB) 2.5 MG/3 ML AMP HHN PRN (17:00)
[2017-06-08] MEDS ORDERED: LABETALOL HCL 20MG INJ IV PRN (17:00)
[2017-06-08] MEDS ORDERED: FENTAnyl 50 MCG/ML VIAL IV PRN ×2 (17:00)
[2017-06-08] MEDS ORDERED: DIPHENHYDRAMINE 50 MG INJ IV PRN (17:00)
[2017-06-08] MEDS ORDERED: IPRATROPIUM (NEB) 0.5 MG/2.5 ML AMP HHN PRN (17:00)
[2017-06-08] MEDS ORDERED: TRIMETHOBENZAMIDE 100 MG/ML VIAL IM PRN (17:00)
[2017-06-08] MEDS ORDERED: OXYCODONE/ACETAMINOPHEN (5/325) TAB PO PRN ×2 (17:00)
[2017-06-08] MEDS ORDERED: MEPERIDINE 25 MG INJ IV PRN (17:00)
[2017-06-08] MEDS ORDERED: ONDANSETRON 4 MG INJ IV PRN (17:00)
[2017-06-08] MEDS ORDERED: hydrALAzine 20 MG INJ IV PRN (17:00)
[2017-06-08] MEDS ORDERED: HYDROmorphONE (0.2 MG/ML) 10ML SYG IV PRN ×3 (17:00)
[2017-06-08] MEDS ORDERED: EPHEDrine SULFATE 50 MG/5 ML SYG IV PRN (17:00)
[2017-06-08] MEDS: FENTAnyl 50 MCG/ML VIAL IV PRN ×3 (17:16→17:30)
--- NOTE | 2017-06-08 18:16 | OPR ---
DATE OF OPERATION: 06/08/2017 SURGEON: Blayne Trejo MD ANESTHESIA: General. PREOPERATIVE DIAGNOSIS: Left carpal tunnel syndrome. POSTOPERATIVE DIAGNOSIS: Left carpal tunnel syndrome. OPERATION PERFORMED: Left carpal tunnel release, open. OPERATIVE FINDINGS: Compression of the median nerve at the carpal tunnel. INDICATIONS FOR PROCEDURE: A 36-year-old female with longstanding left carpal tunnel symptoms. She was diagnosed with carpal tunnel syndrome and failed conservative management. She elected to proceed with surgical intervention, understanding the risks and benefits. OPERATIVE PROCEDURE: Patient was seen in the preoperative area. All further questions were answered. Again, she gave informed consent, understanding the risks and benefits. She was taken to the operative suite and placed in the supine position. She was placed under general anesthesia, and tourniquet placed on the left upper extremity. Ancef 2 grams IV given, and left upper extremity was prepped with ChloraPrep stick and draped in the usual sterile fashion. Esmarch bandage was used to exsanguinate the extremity, and tourniquet inflated to 250 mmHg. A 2-cm incision at the base of the palm was utilized, with sharp dissection carried down through skin and subcutaneous tissue. Retractors were deepened, and the palmar aponeurosis was identified. It was incised along its ulnar border. Retractors deepened. The transverse carpal ligament was divided along its ulnar border approximately 3 mm radial to the hook of the hamate. Distal extent of the transverse carpal ligament was visualized and cut under direct visualization. Retractor placed proximally, and the proximal aspect of the transverse carpal ligament was divided. The carpal tunnel contents were completely decompressed, and wound was copiously irrigated. Skin closed with 4-0 nylon. Xeroform was placed over the wound, followed by sterile gauze, Webril, and Tyler bandage. Tourniquet deflated after 9 minutes. The patient was awakened from anesthesia. She was taken to the postop suite in stable condition and tolerated the procedure well, without complication. SPECIMENS: None. ESTIMATED BLOOD LOSS: 5 mL. SPONGE, INSTRUMENT, NEEDLE COUNTS: Correct. TOURNIQUET TIME: 9 minutes. CONDITION ON DISCHARGE: Stable. Dictated By: Blayne Trejo MD /awa/go /Document#: [id number] MTDD
== END 2017-06-08 18:44 | disposition home or self-care (01) ==
LOC: SDS 12:22
PROVIDERS: ATTEND Orthopaedic Surgery Hand Surgery
DX: G56.02 Carpal tunnel syndrome, left upper limb (principal); E66.9 Obesity, unspecified; Z68.33 Body mass index [BMI] 33.0-33.9, adult; Z88.8 Allergy status to other drugs, medicaments and biological substances; Z91.041 Radiographic dye allergy status; Z91.040 Latex allergy status
CPT/HCPCS: 84703; J0690; J1100; J1885; J2250; J2405; J2710; J2765; J3010

== ENCOUNTER 2017-06-15 14:05 | Day surgery (SDC) | payer OTHER ==
[2017-06-15] VITALS (13 sets, daily range): BP systolic 103–120; BP diastolic 60–77; PULSE 78–96; RESP 16–20; Ht 162.6 cm; Wt 85.7 kg
[~2017-06-15] VITALS: Ht 162.6 cm; Wt 85.7 kg
[2017-06-15] MEDS ORDERED: LIDOCAINE 1% (MPF) 30 ML INJ ONE (15:02)
[2017-06-15] MEDS ORDERED: PROPOFOL 20 ML ONE (15:35)
[2017-06-15] MEDS ORDERED: CEFAZOLIN 1 GM INJ ONE (15:35)
[2017-06-15] MEDS ORDERED: DEXAMETHASONE 4 MG/ML 1 ML INJ ONE (15:37)
[2017-06-15] MEDS ORDERED: KETOROLAC 30 MG INJ ONE (15:37)
[2017-06-15] MEDS ORDERED: METOCLOPRAMIDE 10 MG INJ ONE (15:37)
[2017-06-15] MEDS ORDERED: ONDANSETRON 4 MG INJ ONE (15:37)
[2017-06-15] MEDS ORDERED: MIDAZOLAM 1 MG/ML 2 ML INJ ONE ×2 (15:41)
[2017-06-15] MEDS ORDERED: LABETALOL HCL 20MG INJ IV PRN (16:00)
[2017-06-15] MEDS ORDERED: MEPERIDINE 25 MG INJ IV PRN (16:00)
[2017-06-15] MEDS ORDERED: morphine (1 MG/ML) 10ML SYRINGE IV PRN ×2 (16:00)
[2017-06-15] MEDS ORDERED: DIPHENHYDRAMINE 50 MG INJ IV PRN (16:00)
[2017-06-15] MEDS ORDERED: FENTAnyl 50 MCG/ML VIAL IV PRN ×3 (16:00)
[2017-06-15] MEDS ORDERED: ONDANSETRON 4 MG INJ IV PRN (16:00)
[2017-06-15] MEDS ORDERED: EPHEDrine SULFATE 50 MG/5 ML SYG IV PRN (16:00)
[2017-06-15] MEDS ORDERED: METOCLOPRAMIDE 10 MG INJ IV PRN (16:00)
[2017-06-15] MEDS ORDERED: OXYCODONE/ACETAMINOPHEN (5/325) TAB PO PRN ×2 (16:00)
--- NOTE | 2017-06-15 16:52 | HPN ---
Date/Time of Note Date/Time of Note DATE: 06/15/17 TIME: 16:52 Interval H&P Admission Note Pt. seen H&P reviewed: No system changes REYES MCCRACKEN Jun 15, 2017 16:52
--- NOTE | 2017-06-15 17:35 | OPPN ---
Date/Time of Note Date/Time of Note DATE: 06/15/17 TIME: 17:34 Operative Report Preoperative Diagnosis right carpal tunnel syndrome Postoperative Diagnosis right carpal tunnel syndrome Operation/Procedure Performed right carpal tunnel release Surgeon see signature line broker assistant none Anesthesia: general Estimated blood loss: 0 - 10 ml's Transfusion Required none Specimen none Grafts/Implants none Complications none REYES MCCRACKEN Jun 15, 2017 17:35
--- NOTE | 2017-06-15 17:35 | OPPN ---
Date/Time of Note Date/Time of Note DATE: 06/15/17 TIME: 17:34 Operative Report Preoperative Diagnosis right carpal tunnel syndrome Postoperative Diagnosis right carpal tunnel syndrome Operation/Procedure Performed right carpal tunnel release Surgeon see signature line assistant to the dean none Anesthesia: general Estimated blood loss: 0 - 10 ml's Transfusion Required none Specimen none Grafts/Implants none Complications none REYES MCCRACKEN Jun 15, 2017 17:35
--- NOTE | 2017-06-15 17:35 | OPPN ---
Date/Time of Note Date/Time of Note DATE: 06/15/17 TIME: 17:34 Operative Report Preoperative Diagnosis right carpal tunnel syndrome Postoperative Diagnosis right carpal tunnel syndrome Operation/Procedure Performed right carpal tunnel release Surgeon see signature line catering assistant none Anesthesia: general Estimated blood loss: 0 - 10 ml's Transfusion Required none Specimen none Grafts/Implants none Complications none REYES MCCRACKEN Jun 15, 2017 17:35
[2017-06-15] MEDS ORDERED: BUPIVACAINE 0.5% (SDV) 30 ML INJ ONE (17:41)
[2017-06-15] MEDS: morphine (1 MG/ML) 10ML SYRINGE IV PRN ×2 (17:51→17:59)
--- NOTE | 2017-06-15 18:21 | OPR ---
DATE OF OPERATION: 06/15/2017 SURGEON: Blayne Trejo MD ANESTHESIA: General. PREOPERATIVE DIAGNOSIS: Right carpal tunnel syndrome. POSTOPERATIVE DIAGNOSIS: Right carpal tunnel syndrome. OPERATION PERFORMED: Right carpal tunnel release, open. OPERATIVE FINDINGS: Compression of the median nerve of the carpal tunnel. INDICATION FOR PROCEDURE: A 36-year-old female with longstanding right carpal tunnel symptoms. She failed conservative management and elected to proceed with surgical intervention understanding the risks, benefits. DESCRIPTION OF PROCEDURE: The patient was seen in the preoperative area and all questions were answered. Again, she gave informed consent, understanding the risks and benefits. She was taken to the OR suite and placed in supine position. She was placed under general anesthesia and tourniquet placed on right upper extremity. Right wrist was prepped with ChloraPrep stick and draped in the usual sterile fashion. Ancef 2 g IV given and Esmarch bandage was used to exsanguinate the extremity and tourniquet inflated to 250 mmHg. A 2 cm incision at the base of the palm was utilized with sharp dissection and carried down through skin and subcutaneous tissue. The palmar aponeurosis was identified and was then incised along its ulnar border. Retractors were deepened. Transverse carpal ligament was identified and incised along its ulnar border approximately 3 mm radial to the hook of the hamate. Retractor placed distally and the distal extent of the transverse carpal ligament was incised. Attention turned proximally and the proximal extent of the transverse carpal ligament was incised. The wound was copiously irrigated. Skin closed with 4-0 nylon. Xeroform placed on the wound followed by sterile gauze, Webril, and bias dressing. Tourniquet was deflated after 10 minutes. The patient was awakened by anesthesia. She was taken to postoperative suite in stable condition. She tolerated the patient procedure well without complications. SPECIMENS: None. ESTIMATED BLOOD LOSS: 5 cc. SPONGE, INSTRUMENT, NEEDLE COUNTS: Correct. TOURNIQUET TIME: Ten minutes. CONDITION AT DISCHARGE: Stable. Dictated By: Blayne Trejo MD /awa/[place] /Document#: [id number] [facility]ITALBrian
[2017-06-15] MEDS ORDERED: HYDROCODONE/APAP (5/325) TAB PO PRN (18:30)
== END 2017-06-15 18:58 | disposition home or self-care (01) ==
LOC: SDS 14:05
PROVIDERS: ATTEND Orthopaedic Surgery Hand Surgery
DX: G56.01 Carpal tunnel syndrome, right upper limb (principal); Z91.040 Latex allergy status
CPT/HCPCS: 64721; J0690; J1100; J1885; J2250; J2270; J2405; J2765; J3010; Z7512; Z7610